=== PATIENT | female | born 1930 | race Caucasian/White ===

== ENCOUNTER 2018-01-04 21:45 | Inpatient (IN) | payer OTHER ==
[~2018-01-04] VITALS: Ht 157.5 cm; Wt 55.8 kg
[~2018-01-04 21:45] MED LIST: CLORAZEPATE DIP PO; CYCLOBENZAPRINE10 M1 PO; ZOFRAN ODT4 M1 SL
--- NOTE | 2018-01-04 21:50 | ED GENERAL ADULT ---
History of Present Illness General Chief Complaint: General Adult Stated Complaint: BIBA GENERALIZED WEAKNESS Source: patient Exam Limitations: no limitations Vital Signs & Intake/Output Vital Signs & Intake/Output Vital Signs Date Time Temp Pulse Resp B/P B/P Pulse O2 O2 Flow FiO2 Mean Ox Delivery Rate 01/05 0559 98.7 68 18 124/60 99 01/05 0428 97 Room Air 01/05 0401 97.5 72 18 128/84 99 Room Air 01/05 0247 97.6 74 18 133/83 98 Room Air 01/05 0113 97.5 79 18 154/81 97 Room Air 01/05 0000 97.5 79 18 183/79 96 Room Air 01/04 2258 Room Air 01/04 2154 97.8 71 18 181/78 97 Room Air ED Intake and Output 01/05 0000 01/04 1200 Intake Total Output Total 400 Balance -400 Output, Urine 400 Patient 115 lb Weight Weight Reported by Patient Measurement Method Reconcile Medications Clorazepate Dipotassium 15 MG TABLET 15 MG PO DAILY SLEEP (Reported) Cyclobenzaprine HCl 10 MG TABLET 10 MG PO DAILY MUSCLE STRAIN (Reported) Ondansetron (Zofran Odt) 4 MG TAB.RAPDIS 1 TAB SL TID PRN NAUSEA Triage Nurses Notes Reviewed? yes HPI: 87 y/o F brought in by ambulance c/o generalized weakness of various days duration. Pt is a poor narrator and offers different timelines with regards to her complains. Pt is independent in her ADLs, lives with her , does not need assistance in ambulation. As per pt, she describes the weakness as "no energy to do anything"; she does state she has not had adequate fluid intake. She does ambulate, but states that since yesterday she has had to grab onto things to ambulate. She denies lightheadedness, palpations, fall, head trauma, fever, recent upper respiratory tract infection, chest pain, SOB, cough, dysuria , constipation/diarrhea, headache. On examination, patient was noted to have unsteady gate though ambulating without assistance. Left sided upper extremity weakness was noted intermittingly throughout serial neuro checks. No other focal neurological abnormality was noted. No dysarthria, sensation is preserved. CT head does show the appearance of a chronic infarct in the occipital area that was not present on her latest CT (done in 2014). Passed bedside swallow test. EKG showed NSR. (Harish Najera MD,[facility]) Allergies Coded Allergies: Penicillins (Mild, HIVES, RASH 01/04/18) Sulfa (Sulfonamide Antibiotics) (Mild, HIVES, RASH 01/04/18) aspirin (Mild, VOMIT 01/05/18) (Kiran Francisco DO) Past History Medical History Any Pertinent Medical History? none Neurological: NONE EENT: NONE Cardiovascular: NONE Respiratory: NONE Gastrointestinal: NONE Hepatic: NONE Renal: NONE Musculoskeletal: NONE Psychiatric: NONE Endocrine: NONE Blood Disorders: NONE Cancer(s): NONE History of MRSA: No History of VRE: No History of CDIFF: No Surgical History Surgical History: none Psychosocial History Who do you live with Spouse Services at Home None What is your primary language Malagasy Family History Family History, If Any: MOTHER Relation not specified for: FH: diabetes mellitus FH: heart disease Hx Contributory? No (Harish Najera MD,[facility]) Review of Systems Review of Systems Constitutional: Reports: see HPI. EENTM: Reports: no symptoms. Respiratory: Reports: no symptoms. Cardiovascular: Reports: no symptoms. GI: Reports: no symptoms. Genitourinary: Reports: no symptoms. Musculoskeletal: Reports: no symptoms. Skin: Reports: no symptoms. Neurological/Psychological: Reports: no symptoms. Hematologic/Endocrine: Reports: no symptoms. Immunologic/Allergic: Reports: no symptoms. All Other Systems: Reviewed and Negative (Harish Najera MD,[facility]) Physical Exam Physical Exam General Appearance: well developed/nourished, no apparent distress, alert, awake , comfortable Head: atraumatic, normal appearance Eyes: Bilateral: normal appearance. Neck: normal inspection, supple, full range of motion Respiratory: normal breath sounds, chest non-tender, no respiratory distress, lungs clear Cardiovascular: regular rate/rhythm Gastrointestinal: normal bowel sounds, soft, non-tender, no organomegaly Extremities: normal inspection, normal capillary refill, normal range of motion Neurologic/Psych: no motor/sensory deficits, awake, alert, oriented x 3, normal gait Skin: intact Core Measures ACS in differential dx? No CVA/TIA Diagnosis: Yes Swallow Evaluation Pass Swallow eval date 01/05/18 Swallow eval time 0136 Sepsis Present: No Sepsis Focused Exam Completed? No (Harish Najera MD,[facility]) Core Measures Reason tPA not given Medical Contraindication (Herb OGLESBY,Kiran Cooper) Progress Differential Diagnoses I considered the following diagnoses in my evaluation of the patient: [TIA, CVA] Plan of Care: Orders Procedure Date/time Status CBC WITHOUT DIFFERENTIAL 01/06 06 Active BASIC ELECTROLYTES PLUS BUN&CR 01/06 0600 Active Heart Healthy Diet 01/05 B Active TROPONIN LEVEL 01/05 0600 Active EKG 01/05 0600 Active Pathway - chart 01/05 0239 Active [id number] DOPPLER 01/05 022 Active MRI-HEAD W/O ERICA 01/05 0226 Active Code Status 01/05 0226 Active ECHOCARDIOGRAM 01/05 022 Active Persaud, Insertion/Removal/Asses 01/05 0150 Active CULTURE,URINE 01/05 0150 Active Patient Data 01/05 0138 Active NIH Stroke Scale 01/[address] in observation 01/05 0128 Active ED Holding Orders 01/05 0128 Active Vital Signs 01/05 0128 Active Code Status 01/05 0128 Complete VTE Mechanical Prophylaxis 01/05 UNK Active Nursing Misc 01/05 UNK Active Intake & Output 01/04 2321 Active URINALYSIS 01/04 2202 Complete TROPONIN LEVEL 01/04 2158 Complete LACTIC ACID 01/04 215 Complete COMPREHENSIVE METABOLIC PANEL 01/04 215 Complete CBC WITHOUT DIFFERENTIAL 01/04 2157 Complete EKG 01/04 215 Active Current Medications Sig/Julissa Start time Last Medication Dose Stop Time Status Admin Enoxaparin Sodium 40 MG DAILY 01/05 0900 AC (Lovenox) Acetaminophen 650 MG Q8P PRN 01/05 0245 AC (Tylenol) Atorvastatin Calcium 80 MG 1700 01/05 0230 AC 01/05 (Lipitor) 0255 Ondansetron HCl 4 MG Q8P PRN 01/05 0230 AC 01/05 (Zofran) 0250 Sodium Chloride 1,000 ML Q13H 01/05 0230 AC 01/05 (Normal Saline 0.9%) 01/05 1529 0250 Dexamethasone 8 MG ONCE ONE 01/04 2215 CAN (Decadron) 01/04 221 Ketorolac 50 MG ONCE ONE 01/04 2215 CAN Tromethamine 01/04 221 (Toradol) Laboratory Tests 01/05/18 0600: Troponin I Pending 01/04/18 2305: Urine Color YEL, Urine Clarity CLEAR, Urine pH 8.5 H, Ur Specific [place] 1.010 , Urine Protein NEG, Urine Ketones NEG, Urine Nitrite NEG, Urine Bilirubin NEG, Urine Urobilinogen 0.2, Ur Leukocyte Esterase NEG, Ur Microscopic EXAM NOT REQUIRED, Urine Hemoglobin NEG, Urine Glucose NEG 01/04/18 220: Troponin I < 0.01 01/04/182208: Anion Gap 8, Estimated GFR 59 L, BUN/Creatinine Ratio 21.1, Glucose 94, Lactic Acid 1.0, Calcium 9.0, Total Bilirubin 0.4, AST 19, ALT 23, Alkaline Phosphatase 55, Total Protein 6.3, Albumin 3.7, Globulin 2.6, Albumin/Globulin Ratio 1.4, CBC w Diff NO MAN DIFF REQ, RBC 4.91, MCV 83.6, MCH 27.8, MCHC 33.2, RDW 14.6 H , MPV 10.8 H, Gran % 59.7, Lymphocytes % 30.9, Monocytes % 7.4, Eosinophils % 1.6, Basophils % 0.4, Absolute Granulocytes 3.4, Absolute Lymphocytes 1.8, Absolute Monocytes 0.4, Absolute Eosinophils 0.1, Absolute Basophils 0 Microbiology 01/05 0208 URINE ROUT: Urine Culture - RECD Diagnostic Imaging: Viewed by Me: CT Scan. Initial ED EKG: NSR ([facility] Ghosh MD) Differential Diagnoses I (Kiran Francisco DO) Departure Departure Disposition: STILL A PATIENT Condition: Stable Referrals: Edgar Garcia MD (PCP/Family) Departure Forms: Customer Survey General Discharge Information Observation Note Spoke With: Edgar Garcia MD Physician Advisor Notified: KIRAN FRANCISCO DO Place Patient In: Non-ED OBS Care Area Rationale for Observation: My rational for observation is as follows [87 y/o F coming in c/o generalized weakness was found to have intermittent L UE weakness on serial neuro checks. CT scan shows chronic occipital lobe infarct compared to prior CT done in 2014. She needs serial neuro checks, cardiac monitoring, possible neurology consultation]. ([facility] Ghosh MD) Departure Clinical Impression Primary Impression: TIA (transient ischemic attack) Admission Note Spoke With: Edgar Garcia MD Observation Note Rationale for Observation: My rational for observation is as follows . Resident Co-Sign Statement Statement: ED Attending supervision documentation- [x] I saw and evaluated the patient. I have also reviewed all the pertinent lab results and diagnostic results. I agree with the findings and the plan of care as documented in the Resident's documentation. [] I have reviewed the ED Record and agree with the Resident's documentation. [] Additions or exceptions (if any) to the Resident's note and plan are summarized below: [] The patient is an 87-year-old female who has had intermittent confusion and now has intermittent left upper extremity weakness. Concern for TIA has been raised. The patient is being placed in observation for telemetry monitoring, neurology consultation, neurologic evaluations every 6 hours. On my exam she was awake alert oriented 3, somewhat slow to respond, cranial nerves II through XII are grossly intact, she had left upper extremity weakness that was significant, no lower extremity weakness but gait was unsteady. Consider MRI. (Herb OGLESBY,Kiran Cooper) Critical Care Note Critical Care Note Critical Care Time: 30-74 min (Harish Najera MD,[facility])
[2018-01-04 22:30] LABS: ABSOLUTE BASOPHIL COUNT 0 /CUMM (0.0-0.2); ABSOLUTE EOSINOPHIL COUNT 0.1 /CUMM (0.0-0.7); ABSOLUTE GRANULOCYTE CT 3.4 /CUMM (1.4-6.5); ABSOLUTE LYMPH COUNT 1.8 /CUMM (1.2-3.4); ABSOLUTE MONOCYTE COUNT 0.4 /CUMM (0.10-0.60); BASOPHIL % 0.4 % (0.0-2.0); EOSINOPHIL % 1.6 % (0-5); GRANULOCYTE % 59.7 % (42.2-75.2); HEMATOCRIT 41.1 % (37-47); MEAN CORPUSCULAR HGB 27.8 PG (27.0-31.0); MEAN CORPUSCULAR HGB CONC 33.2 G/DL (33.0-37.0); MEAN CORPUSCULAR VOLUME 83.6 FL (81.0-99.0); MEAN PLATELET VOLUME 10.8 FL (7.4-10.4); PLATELET COUNT 158 /CUMM (130-400); RBC DISTRIBUTION WIDTH 14.6 % (11.5-14.5); RED BLOOD CELL CT 4.91 /CUMM (4.20-5.40); WHITE BLOOD CELL COUNT 5.7 /CUMM (4.8-10.8)
--- NOTE | 2018-01-05 00:31 | CT SCAN REPORT ---
EXAMINATION: CT HEAD WITHOUT CONTRAST CLINICAL INFORMATION: Unsteady gait for one day. Evaluate for cerebellar infarct. COMPARISON: 12/24/2014 TECHNIQUE: Contiguous axial imaging was performed from the skull base to vertex without intravenous contrast. DLP: 614 mGy-cm. FINDINGS: There is hypoattenuation seen in the left occipital lobe with the appearance of a chronic infarct. This is a new finding since 12/24/2014. There is no evidence of acute intracranial hemorrhage or territorial infarction. No abnormal mass effect or midline shift is seen. [place] to white matter differentiation is otherwise well preserved. No extra-axial fluid collections are identified. No hydrocephalus. Proportional prominence of the ventricles and sulcal spaces is consistent with moderate volume loss. Confluent periventricular and deep white matter hypoattenuation is consistent with severe small vessel ischemic changes. Chronic lacunar infarct in the left thalamus. The osseous structures and soft tissues are normal. Mild opacification of the left ethmoid air cells. The mastoid air cells and visualized portions of the paranasal sinuses are otherwise well aerated. IMPRESSION: No acute intracranial pathology. Chronic appearing left occipital lobe infarct, although this is new from 12/24/2014. No cerebellar infarct seen. Moderate volume loss with severe small vessel ischemic changes.
--- NOTE | 2018-01-05 02:47 | History & Physical ---
Obey Escobar 01/05/18 0228: General Information and HPI MD Statement: I have seen and personally examined LOBO RODRIGUEZ and documented this H&P. The patient is a 87 year old F who presented with a patient stated chief complaint of weakness. History of Present Illness: Patient is a 87 year old female with no significant PMH and last admission 2013 where she was ruled out ACS for small elvevation of troponins. Patient is a poor historian with hearing loss. Presented today after a cheif complaint of "weakness." Patient claims she is overall not feeling well and noticed she has had changes in her speech this morning from baseline. In addition she has noticed that within the past 12 hours she has had significant changes in strength in her left upper extremity for which she claims feels "."She has not been eating or drinking well in the past week. She lives with her whom she cares for and is independent at baseline. She does not require a walker or cane at home. No history of strokes or myocardial infarctions in the past. Patient quit smoking 25 years ago and denies any alcohol use. Brought to the ED by her grandson. She denied any fevers, chills, chest pain, palpitations, headaches, nausea, vomiting, visual changes or bowel/bladder incontinence. PCP: Dr. Garcia Allergies/Medications Allergies: Coded Allergies: Penicillins (Mild, HIVES, RASH 01/04/18) Sulfa (Sulfonamide Antibiotics) (Mild, HIVES, RASH 01/04/18) aspirin (Mild, VOMIT 01/05/18) Home Med list Clorazepate Dipotassium 15 MG TABLET 15 MG PO DAILY SLEEP (Reported) Cyclobenzaprine HCl 10 MG TABLET 10 MG PO DAILY MUSCLE STRAIN (Reported) Ondansetron (Zofran Odt) 4 MG TAB.RAPDIS 1 TAB SL TID PRN NAUSEA Past History Travel History Traveled to [place] past 21 day No Medical History Neurological: NONE EENT: hearing loss Cardiovascular: NONE Respiratory: NONE Gastrointestinal: NONE Hepatic: NONE Renal: NONE Musculoskeletal: NONE Psychiatric: NONE Endocrine: NONE Blood Disorders: NONE Cancer(s): NONE History of MRSA: No History of VRE: No History of CDIFF: No Surgical History Surgical History: none Past Family/Social History Family History Relations & Conditions if any MOTHER Relation not specified for: FH: diabetes mellitus FH: heart disease Psychosocial History Services at Home: None Smoking Status: Former Smoker ETOH Use: denies use Illicit Drug Use: denies illicit drug use Review of Systems Review of Systems Constitutional: Denies: see HPI. Exam & Diagnostic Data Last 24 Hrs of Vital Signs/I&O Vital Signs Date Time Temp Pulse Resp B/P B/P Pulse O2 O2 Flow FiO2 Mean Ox Delivery Rate 01/05 0000 97.5 79 18 183/79 96 Room Air 01/04 2258 Room Air 01/04 2154 97.8 71 18 181/78 97 Room Air Intake & Output 01/05 0800 01/05 0000 01/04 1600 Intake Total Output Total 400 Balance -400 Output, Urine 400 Patient 115 lb Weight Weight Reported by Patient Measurement Method Physical Exam General Appearance Alert, Oriented X3, Cooperative, No Acute Distress Skin No Rashes, No Breakdown HEENT PERRLA, EOMI, dry mucous membranes Neck Supple, No JVD, No thryomegaly Cardiovascular Regular Rate, Normal S1, Normal S2 Lungs Clear to Auscultation, Normal Air Movement Abdomen Normal Bowel Sounds, Soft, No Tenderness Neurological Sensation Intact, Gait unasessed Normal speech strength decreased in left upper extremity 3/5 Pronator drift left arm CN intact Normal Tone Extremities No Clubbing, No Cyanosis, No Edema Vascular Normal Pulses, Pulses Symmetrical Last 24 Hrs of Labs/Doug: Laboratory Tests 01/04/182304: Urine Color YEL, Urine Clarity CLEAR, Urine pH 8.5 H, Ur Specific [place] 1.010 , Urine Protein NEG, Urine Ketones NEG, Urine Nitrite NEG, Urine Bilirubin NEG, Urine Urobilinogen 0.2, Ur Leukocyte Esterase NEG, Ur Microscopic EXAM NOT REQUIRED, Urine Hemoglobin NEG, Urine Glucose NEG 01/04/182208: Troponin I < 0.01 01/04/182208: Anion Gap 8, Estimated GFR 59 L, BUN/Creatinine Ratio 21.1, Glucose 94, Lactic Acid 1.0, Calcium 9.0, Total Bilirubin 0.4, AST 19, ALT 23, Alkaline Phosphatase 55, Total Protein 6.3, Albumin 3.7, Globulin 2.6, Albumin/Globulin Ratio 1.4, CBC w Diff NO MAN DIFF REQ, RBC 4.91, MCV 83.6, MCH 27.8, MCHC 33.2, RDW 14.6 H , MPV 10.8 H, Gran % 59.7, Lymphocytes % 30.9, Monocytes % 7.4, Eosinophils % 1.6, Basophils % 0.4, Absolute Granulocytes 3.4, Absolute Lymphocytes 1.8, Absolute Monocytes 0.4, Absolute Eosinophils 0.1, Absolute Basophils 0 Microbiology 01/05 0208 URINE ROUT: Urine Culture - RECD Diagnostic Data EKG Results NSR 69, QTC 437 Assessment/Plan Assessment: Patient is a 87 year old female with no significant PMH who presented with increasing weakness, subjective changes in speech and increasingly left upper extremity weakness. New CT changes of chronic appearing left occipital lobe infarct new from previous admission 12/24/2014. Severe small vessel ischemic changes, no volume loss. Patients vital signs stable with negative troponin and NSR on EKG. Patient alert and oriented X3. Claims to be allergic to aspirin ( noticed vomiting a long time ago). NIH score 2 on admission. EMERGENCY DEPARTMENT Vitals: 97.8, 71, 18, 181/78 EKG: NSR 69, QTC 437 CBC: WBC 5.7, Hgb 13.6, Hct: 41.1, Plt 158 Chemistry: Na: 136, K+ 4.2, Cl 100, CO2 28, BUN 19, Cr 0.9 UA: Negative CT HEAD: No acute intracranial pathology. Chronic appearing left occipital lobe infarct, although this is new from 12/24/2014. No cerebellar infarct seen. Moderate volume loss with severe small vessel ischemic changes. PROBLEM LIST: 1. Rule out TIA/CVA RULE OUT TIA/CVA Patient a poor historian and originally told she has signs of fatigue and weakness with poor oral intake. Further history discovered she may have noticed changes in her speech earlier today. Increasing left upper extremity weakness noticed on examination. CT imaging shows a new chronic left occipital lobe infarct changed from previous in 12/2014. NIH score 2 on admission. * OBSERVE on telemetry for arrythmias * Q2 neurological checks * Neurology consultation in AM * MRI Brain/Carotid Dopplers * ECHO * Aspirin + Statin (patient states she is allergic to statins and she has vomited in past); will give prn Zofran for nausea * Repeat troponin/EKG * PT/OT/Speech * Fall Precaution Code Status: Full Code DVT PPx: Heparin SC Diet: Regular Diet As Ranked By This Provider Problem List: 1. TIA (transient ischemic attack) Core Measures/Misc (02/09) Acute Coronary Syndrome ACS Diagnosis: No Congestive Heart Failure Congestive Heart Failure Diagnosis No Cerebrovascular Accident CVA/TIA Diagnosis: Yes NIH Stroke Scale: Total 2 Date Last Known Well: 01/03/18 Time Last Known Well: 0000 Symptom Start Date: 01/05/18 Symptom Start Time: 0900 tPA Risk/Benefit discussion I have discussed the risks, benefits, and alternatives of Alteplase treatment including: - If given promptly, can resolve or have major improvement in stroke symptoms. - Bleeding (hemorrhage) is the most common risk that can occur. - Bleeding may occur into the brain and cause~shelter serious disability~ including - this is rare, affecting about 1% of patients. - Alternative treatments with proven benefit for patients with stroke include aspirin and care in a specialized unit where staff members pay careful attention to a variety of basic aspects of care. tPA given? No Reason tPA not ordered Medical Contraindication Swallow Evaluation Pass Current/Past Hx AFib/AFlutter Yes VTE (View Protocol) VTE Risk Factors Age>40 No Mechanical VTE Prophylaxis d/t N/A MechProphylax Ordered No VTE Pharm Prophylaxis d/t NA PharmProphylax ordered Sepsis (View protocol) Sepsis Present: No If YES complete Sepsis Event Note If YES complete Sepsis Event Note Marielos Restrepo 01/05/18 0249: Core Measures/Misc (02/09) Sepsis (View protocol) If YES complete Sepsis Event Note If YES complete Sepsis Event Note Resident Review Statement Resident Statement: examined this patient, discussed with business analyst intern, agreed with business analyst intern Other Findings: Patient is 87-year-old female with past medical history of undiagnosed occipital stroke, demand ischemia, was brought in by family with a chief complaint of generalized weakness since past 2 days. Patient states that she has not been feeling well lately, and has been having little low oral intake since past 1 week. This morning when she woke up, she also noticed some slurring in her speech, and later as the day progressed, she noticed that her left upper extremity is becoming weak. Patient describes it as the left hand is 'becoming '. Patient had a NIH stroke scale of 2 on admission scoring on left arm pronator drift and slurring of speech. Patient believes that she continues to have slurred speech and her left upper extremity was weak on examination. Patient reports that she came in today because she was not feeling well and was increasingly dizzy. Of note, CT head done in ER was significant for Chronic appearing left occipital lobe infarct, although this is new from 12/24/2014. Patient was not aware of this finding. Her right upper and lower extremity show no remnant loss of strength or sensation on examination. On review of system, patient denies any headache/dizziness/chest pain/dyspnea/ abdominal discomfort/diarrhea/fever/chills/constipation/burning micturition/pain , swelling, weakness in lower extremities. Labs and vitals as above CTA findings as above. No acute intracranial pathology Assessment and plan We will admit the patient on telemetry floor as observation, NIH stroke scale upon admission is 2, every 2 hr neuro checks, neurology consult in a.m. we will obtain MRI brain, bilateral carotid Doppler ultrasound, echocardiogram. Will start her on aspirin and high-dose statin. Since the symptoms have been going on since morning, she is not a candidate for TPA. We will give her another bag of IV fluids given that she has low p.o. intake and looks dry on physical exam. Will get another set of EKG and troponins to rule out ACS. Patient does not take any medication at home. DVT prophylaxis subcutaneous Lovenox. Patient is DNR/DNI.
--- NOTE | 2018-01-05 07:13 | PN-Observation ---
Observation Note Observation Note _ I have personally examined LOBO RODRIGUEZ. her disposition is uncertain at this time. Before a determination can be made, she requires continued observation for the following reasons [Left-sided weakness, possible TIA/CVA]. Assessment/Plan Medical Assessment: 87 year old female presenting with increasing LUE weakness and self-reported aphasia. -MRI brain showed: acute infarct in the right parietal lobe with minimal gyral petechial hemorrhage. Additional punctate foci of acute ischemia in the right middle frontal gyrus near the vertex and in the posterior left parietal lobe. -Bedside swallow evaluation was performed, which the patient passed. Problems: 1. 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 LUE weakness Problem List: 1. Hypertension 2. CVA (cerebral vascular accident) Plan: * Continue regular diet as patient passed bedside swallow exam * Further evaluation tomorrow with speech therapy * Aspirin & Statin * Continue Lisinopril * PT, OT consultation Subjective Follow-up For: TIA vs. CVA Subjective: Patient seen resting in the ED bed, grasping the phone off the hook with her R hand as her L hand is kept close to her chest. She reports feeling improved from yesterday, has minimal memory of the events surrounding her arrival in the ED, but does report ongoing left upper extremity weakness. Denies headache, tingling /numbness, dizziness, ongoing aphasia. Review of Systems Constitutional: Reports: weakness. Denies: chills, diaphoresis, fever, malaise. Objective Last 24 Hrs of Vital Signs/I&O Vital Signs Date Time Temp Pulse Resp B/P B/P Pulse O2 O2 Flow FiO2 Mean Ox Delivery Rate 01/05 0559 98.7 68 18 124/60 99 01/05 0428 97 Room Air 01/05 0401 97.5 72 18 128/84 99 Room Air 01/05 0247 97.6 74 18 133/83 98 Room Air 01/05 0113 97.5 79 18 154/81 97 Room Air 01/05 0000 97.5 79 18 183/79 96 Room Air 01/04 2258 Room Air 01/04 2154 97.8 71 18 181/78 97 Room Air Intake & Output 01/05 0800 01/05 0000 01/04 1600 Intake Total Output Total 400 Balance -400 Output, Urine 400 Patient 52.163 kg Weight Weight Reported by Patient Measurement Method Physical Exam General Appearance: Alert, Oriented X3, Cooperative, No Acute Distress Neurological: LUE weak, 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, while most fingers unable to grasp Current Medications: Current Medications Sig/Julissa Start time Last Medication Dose Route Stop Time Status Admin Acetaminophen 650 MG Q8P PRN 01/05 245 AC PO Aspirin 0 .STK-MED ONE 01/05 024 DC PO Aspirin 325 MG ONCE ONE 01/05 0230 DC 01/05 PO 01/05 0231 0247 Atorvastatin Calcium 80 MG 1700 01/05 023 AC 01/05 PO 0255 Dexamethasone 8 MG ONCE ONE 01/04 2215 CAN PO 01/05 2216 Enoxaparin Sodium 40 MG DAILY 01/05 0900 AC SC Ketorolac 50 MG ONCE ONE 01/04 2215 CAN Tromethamine IM 01/05 2216 Ondansetron HCl 0 .STK-MED ONE 01/05 250 DC .ROUTE Ondansetron HCl 4 MG Q8P PRN 01/05 0230 AC 01/05 IV 0250 Sodium Chloride 1,000 ML Q13H 01/05 023 AC 01/05 IV 01/05 1529 0250 Sodium Chloride 1,000 ML BOLUS ONE 01/04 2230 DC 01/04 IV 01/04 2329 2238 Last 24 Hrs of Labs/Mics: Laboratory Tests 01/05/18 0600: Troponin I < 0.01 01/04/18 2305: Urine Color YEL, Urine Clarity CLEAR, Urine pH 8.5 H, Ur Specific [place] 1.010 , Urine Protein NEG, Urine Ketones NEG, Urine Nitrite NEG, Urine Bilirubin NEG, Urine Urobilinogen 0.2, Ur Leukocyte Esterase NEG, Ur Microscopic EXAM NOT REQUIRED, Urine Hemoglobin NEG, Urine Glucose NEG 01/04/18 2209: Troponin I < 0.01 01/04/18 220: Anion Gap 8, Estimated GFR 59 L, BUN/Creatinine Ratio 21.1, Glucose 94, Lactic Acid 1.0, Calcium 9.0, Total Bilirubin 0.4, AST 19, ALT 23, Alkaline Phosphatase 55, Total Protein 6.3, Albumin 3.7, Globulin 2.6, Albumin/Globulin Ratio 1.4, CBC w Diff NO MAN DIFF REQ, RBC 4.91, MCV 83.6, MCH 27.8, MCHC 33.2, RDW 14.6 H , MPV 10.8 H, Gran % 59.7, Lymphocytes % 30.9, Monocytes % 7.4, Eosinophils % 1.6, Basophils % 0.4, Absolute Granulocytes 3.4, Absolute Lymphocytes 1.8, Absolute Monocytes 0.4, Absolute Eosinophils 0.1, Absolute Basophils 0 Microbiology 01/058 URINE ROUT: Urine Culture - RECD
--- NOTE | 2018-01-05 09:28 | MRI REPORT ---
EXAMINATION: MR BRAIN WITHOUT CONTRAST CLINICAL INFORMATION: New left-sided weakness. Rule out acute stroke. COMPARISON: Head CT from 01/05/2018. TECHNIQUE: Multiplanar, multisequence imaging of the brain was performed without contrast. FINDINGS: There are acute infarcts in the right parietal lobe. A small area of diffusion signal abnormality is also visible in the right frontal lobe at the high convexity. There is a punctate acute infarct is well in the left parietal lobe posteriorly. 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 There is a chronic infarct with laminar necrosis in the left [place] vascular territory involving the occipital lobe as well. There is no evidence of hydrocephalus. No mass effect or midline shift is seen. No extra-axial fluid collections are seen. The cerebellum is normal. Generalized parenchymal volume loss evident. There is a mild amount of gyral petechial hemorrhage at the site of the acute infarct in the right parietal lobe. The craniovertebral junction, marrow signal, and midline structures are normal. The major intracranial flow voids at the level of the [place] of Rodríguez are preserved. The dural venous sinus flow voids are maintained. The mastoid air cells and paranasal sinuses are well aerated. IMPRESSION: Acute infarct in the right parietal lobe with minimal gyral petechial hemorrhage. Additional punctate foci of acute ischemia in the right middle frontal gyrus near the vertex and in the posterior left parietal lobe.
--- NOTE | 2018-01-05 10:14 | ULTRASOUND REPORT ---
EXAMINATION: DUPLEX BILATERAL CAROTID ULTRASOUND CLINICAL INFORMATION: Slurring of speech with left-sided weakness COMPARISON: None. TECHNIQUE: Duplex bilateral carotid US was performed using real-time ultrasound and Doppler techniques (integrating B-mode 2D vascular images, Doppler spectral analysis and color flow Doppler imaging). These techniques were utilized to interrogate the extracranial carotid and vertebral arteries bilaterally. The degree of stenosis is based off criteria similar to NASCET. FINDINGS: 1. On the right: There is a hemodynamically significant stenosis correlating to 50-79% diameter reduction of the proximal internal carotid artery. A large amount of hyperechoic plaque is noted within the proximal internal and external carotid arteries. The peak systolic and diastolic velocities as measured within the proximal internal carotid artery equals 189 and 3 cm/s respectively. The vertebral artery is patent demonstrating antegrade flow. The right external carotid artery shows no significant stenosis. 2. On the left: Plaque is noted within the internal and carotid artery, but velocity measurements are all normal, not suggesting a stenosis of greater than 50% diameter reduction in the left ICA. The vertebral artery is patent demonstrating antegrade flow. The left external carotid artery shows no significant stenosis. IMPRESSION: Hemodynamically significant stenosis in the right internal carotid artery consistent with a 50-79% diameter reduction. On the left, a stenosis of greater than 50% is not present.
--- NOTE | 2018-01-05 10:24 | Admission Certification ---
Admission Certification Certification Statement - As attending physician, I certify that at the time of - admission, based on clinical presentation, severity of - symptoms, need for further diagnostic testing and - therapeutic interventions, and risk of adverse outcomes - without in-hospital treatment, in my clinical assessment, - this patient requires an acute hospital stay for a minimum - of two nights or longer. I have also considered psychsocial - factors such as support system, advanced age, financial - issues, cognitive issues, and failed out-patient treatments, - past re-admission history, safety of patient, and lack of - compliance as applicable. Specific rationale supporting this admission is: Generalized weakness, TIA, possible CVA
--- NOTE | 2018-01-05 10:28 | PN- Att Addend ---
Attending Addendum Attending Brief Note 87-year-old white female who is a poor historian induction followed regularly with myself, also taking care of a sick . Has been complaining of weakness for several days is not too specific if it is localized to generalized. Maybe not hydrating as good as she should. Was brought in by ambulance to the emergency room. Her monitor shows sinus rhythm. She denies any incontinence. Or any speech problems. She had a CAT scan of the head which showed some old changes in the occipital area. Patient is admitted for observation she will have a neurology consultation will be going for an MRI of the head and carotid Doppler.. Current Medications Sig/Julissa Start time Last Medication Dose Route Stop Time Status Admin Acetaminophen 650 MG Q8P PRN 01/05 0245 AC PO Aspirin 0 .STK-MED ONE 01/05 0242 DC PO Aspirin 325 MG ONCE ONE 01/05 0230 DC 01/05 PO 01/05 0231 0247 Atorvastatin Calcium 80 MG 1700 01/05 0230 AC 01/05 PO 0255 Dexamethasone 8 MG ONCE ONE 01/04 2215 CAN PO 01/04 2216 Enoxaparin Sodium 0 .STK-MED ONE 01/05 0933 DC SC Enoxaparin Sodium 40 MG DAILY 01/05 0900 AC 01/05 SC 0932 Ketorolac 50 MG ONCE ONE 01/04 2215 CAN Tromethamine IM 01/04 2216 Ondansetron HCl 0 .STK-MED ONE 01/05 0250 DC .ROUTE Ondansetron HCl 4 MG Q8P PRN 01/05 0230 AC 01/05 IV 0250 Sodium Chloride 1,000 ML Q13H 01/05 0230 AC 01/05 IV 01/05 1529 0250 Sodium Chloride 1,000 ML BOLUS ONE 01/04 2230 DC 01/04 IV 01/04 2329 2238 Patient probably would be started on a statin after neurology evaluation..
--- NOTE | 2018-01-05 15:54 | Cons- Neurology ---
General Information and HPI Consulting Request Date of Consult: 01/05/18 Requested By: Edgar Garcia MD Reason for Consult: Trouble speaking and left sided weakness Source of Information: patient Exam Limitations: no limitations History of Present Illness: This is a very pleasant 87 year old right handed woman who presents from home after developing a new sudden trouble with expressive speech and left sided weakness last night. She was now found to have a new infarction on MRI. She notes that the left side weakness is somewhat improved and so is her speech. She managed to down a meal in the ER. No other known cardiovascular risk factors. Allergies/Medications Allergies: Coded Allergies: Penicillins (Mild, HIVES, RASH 01/04/18) Sulfa (Sulfonamide Antibiotics) (Mild, HIVES, RASH 01/04/18) aspirin (Mild, VOMIT 01/05/18) Home Med List: No Known Home Medications Current Medications: Current Medications Sig/Julissa Start time Last Medication Dose Route Stop Time Status Admin Acetaminophen 650 MG Q8P PRN 01/05 0245 AC PO Aspirin 0 .STK-MED ONE 01/05 0242 DC PO Aspirin 325 MG ONCE ONE 01/05 023 DC 01/05 PO 01/05 0231 0247 Atorvastatin Calcium 80 MG 1700 01/05 0230 AC 01/05 PO 0255 Dexamethasone 8 MG ONCE ONE 01/04 2215 CAN PO 01/04 221 Enoxaparin Sodium 0 .STK-MED ONE 01/05 0933 DC SC Enoxaparin Sodium 40 MG DAILY 01/05 0900 AC 01/05 SC 0932 Ketorolac 50 MG ONCE ONE 01/04 221 CAN Tromethamine IM 01/04 2216 Ondansetron HCl 0 .STK-MED ONE 01/05 0250 DC .ROUTE Ondansetron HCl 4 MG Q8P PRN 01/05 0230 AC 01/05 IV 0250 Sodium Chloride 1,000 ML Q13H 01/05 0230 DC 01/05 IV 01/05 1529 0250 Sodium Chloride 1,000 ML BOLUS ONE 01/04 2230 DC 01/04 IV 01/04 2329 2238 Review of Systems Review of Systems: Otherwise negative to the 10 point complete review of system. Past History Travel History Traveled to [place] past 21 day No Medical History Blood Transfusion Hx: No Neurological: NONE EENT: hearing loss Cardiovascular: NONE Respiratory: NONE Gastrointestinal: NONE Hepatic: NONE Renal: NONE Musculoskeletal: NONE Psychiatric: NONE Endocrine: NONE Blood Disorders: NONE Cancer(s): NONE Surgical History Surgical History: 1 Family History Relations & Conditions If Any: MOTHER Relation not specified for: FH: diabetes mellitus FH: heart disease Psychosocial History Services at Home: None Smoking Status: Former Smoker ETOH Use: denies use Illicit Drug Use: denies illicit drug use Exam & Diagnostic Data Vital Signs and I&O Vital Signs Date Time Temp Pulse Resp B/P B/P Pulse O2 O2 Flow FiO2 Mean Ox Delivery Rate 01/05 1338 98.8 62 16 154/71 97 Room Air 01/05 0940 95 Room Air Room Air 01/05 0937 96.5 71 18 170/71 95 Room Air Room Air 01/05 0559 98.7 68 18 124/60 99 01/05 0428 97 Room Air 01/05 0401 97.5 72 18 128/84 99 Room Air 01/05 0247 97.6 74 18 133/83 98 Room Air 01/05 0113 97.5 79 18 154/81 97 Room Air 01/05 0000 97.5 79 18 183/79 96 Room Air 01/04 2258 Room Air 01/04 2154 97.8 71 18 181/78 97 Room Air Intake & Output 01/05 1600 01/05 0800 01/05 0000 Intake Total Output Total 400 Balance -400 Output, Urine 400 Patient 115 lb 115 lb Weight Weight Reported by Patient Measurement Method Physical Exam: Alert and orientedx3. Fluent though somewhat dysarthric. Comprehends. RRR, S1 and S2 normal. EOMI, JHOAN no nystagmus, no clear facial droop, face symmetric, tongue midline, VF - not following hard to say if there is a deficit (will repeat tomorrow), V1- V3 sensation normal, TPZ strong. Left hemiparesis with pronator drift 3/5 arm and +4/5 proximal leg. Right side strong. Sensation intact b/l. FNF normal on right. Trouble with it on left. Upgoing toe on left side. Gait deferred. Last 48 Hours of Lab Results: Laboratory Tests 01/05 01/04 01/04 0600 2305 2209 Chemistry Troponin I (< 0.11 ng/ml) < 0.01 < 0.01 Urines Urine Color (YEL,AMB,STR) YEL Urine Clarity (CLEAR) CLEAR Urine pH (5.0 - 8.0) 8.5 H Ur Specific [place] (1.001 - 1.035) 1.010 Urine Protein (NEG,<30 MG/DL) NEG Urine Ketones (NEG) NEG Urine Nitrite (NEG) NEG Urine Bilirubin (NEG) NEG Urine Urobilinogen (0.1 - 1.0 EU/dl) 0.2 Ur Leukocyte Esterase (NEG) NEG Ur Microscopic EXAM NOT REQUIRED Urine Hemoglobin (NEG) NEG Urine Glucose (N MG/DL) NEG 01/04 2209 Chemistry Sodium (137 - 145 mmol/L) 136 L Potassium (3.5 - 5.1 mmol/L) 4.2 Chloride (98 - 107 mmol/L) 100 Carbon Dioxide (22 - 30 mmol/L) 28 Anion Gap (5 - 16) 8 BUN (7 - 17 mg/dL) 19 H Creatinine (0.5 - 1.0 mg/dL) 0.9 Estimated GFR (>60 ml/min) 59 L BUN/Creatinine Ratio (7 - 25 %) 21.1 Glucose (65 - 99 mg/dL) 94 Lactic Acid (0.7 - 2.1 mmol/L) 1.0 Calcium (8.4 - 10.2 mg/dL) 9.0 Total Bilirubin (0.2 - 1.3 mg/dL) 0.4 AST (14 - 36 U/L) 19 ALT (9 - 52 U/L) 23 Alkaline Phosphatase (<127 U/L) 55 Total Protein (6.3 - 8.2 g/dL) 6.3 Albumin (3.5 - 5.0 g/dL) 3.7 Globulin (1.9 - 4.2 gm/dL) 2.6 Albumin/Globulin Ratio (1.1 - 2.2 %) 1.4 Hematology CBC w Diff NO MAN DIFF REQ WBC (4.8 - 10.8 /CUMM) 5.7 RBC (4.20 - 5.40 /CUMM) 4.91 Hgb (12.0 - 16.0 G/DL) 13.6 Hct (37 - 47 %) 41.1 MCV (81.0 - 99.0 FL) 83.6 MCH (27.0 - 31.0 PG) 27.8 MCHC (33.0 - 37.0 G/DL) 33.2 RDW (11.5 - 14.5 %) 14.6 H Plt Count (130 - 400 /CUMM) 158 MPV (7.4 - 10.4 FL) 10.8 H Gran % (42.2 - 75.2 %) 59.7 Lymphocytes % (20.5 - 51.1 %) 30.9 Monocytes % (1.7 - 9.3 %) 7.4 Eosinophils % (0 - 5 %) 1.6 Basophils % (0.0 - 2.0 %) 0.4 Absolute Granulocytes (1.4 - 6.5 /CUMM) 3.4 Absolute Lymphocytes (1.2 - 3.4 /CUMM) 1.8 Absolute Monocytes (0.10 - 0.60 /CUMM) 0.4 Absolute Eosinophils (0.0 - 0.7 /CUMM) 0.1 Absolute Basophils (0.0 - 0.2 /CUMM) 0 Imaging/Other Studies: MRI brain reviewed: IMPRESSION: Acute infarct in the right parietal lobe with minimal gyral petechial hemorrhage. Additional punctate foci of acute ischemia in the right middle frontal gyrus near the vertex and in the posterior left parietal lobe. Carotids: FINDINGS: 1. On the right: There is a hemodynamically significant stenosis correlating to 50-79% diameter reduction of the proximal internal carotid artery. A large amount of hyperechoic plaque is noted within the proximal internal and external carotid arteries. The peak systolic and diastolic velocities as measured within the proximal internal carotid artery equals 189 and 3 cm/s respectively. The vertebral artery is patent demonstrating antegrade flow. The right external carotid artery shows no significant stenosis. 2. On the left: Plaque is noted within the internal and carotid artery, but velocity measurements are all normal, not suggesting a stenosis of greater than 50% diameter reduction in the left ICA. The vertebral artery is patent demonstrating antegrade flow. The left external carotid artery shows no significant stenosis. Assessment/Plan Assessment: 87 year old most likely with a new arterioembolic shower from the R ICA plaque or due to its stenosis. Recommendations: 1. Monitor with telemetry for Afib. 2. Bedside swallow evaluation than dysphagia for tonight.. 3. Tomorrow full swallow. 4. Aspirin, Lipitor 80 and [id number] daily. 5. Cardiology consult. 6. Vascular consult - R ICA stenosis. 7. PT/OT, speech and swallow. 8. Echo, lipids, HbA1c, Tsh, B12. YC Consult Acknowledgment - Thank you for your consult request.
[2018-01-05 16:14] VITALS: BP 128/76
[2018-01-05 22:01] VITALS: BP 140/84
--- NOTE | 2018-01-06 06:53 | PN- Housestaff ---
Subjective Follow-up For: STROKE Subjective: Patient has been sedated today after receiving IV Zyprexa last night, patient does not awake to command nor sternal rub. Review of Systems Constitutional: Reports: see HPI. Objective Last 24 Hrs of Vital Signs/I&O Vital Signs Date Time Temp Pulse Resp B/P B/P Pulse O2 O2 Flow FiO2 Mean Ox Delivery Rate 01/06 1440 97.4 68 18 94/52 93 Room Air 01/06 1111 74 98/50 01/06 1100 74 98/50 01/06 0658 98.0 105 18 162/88 93 Room Air 01/05 2201 98.4 64 20 140/84 95 01/05 1733 68 128/76 01/05 1614 98.4 68 18 128/76 98 Intake & Output 01/06 1600 01/06 0800 01/06 0000 Intake Total 240 Output Total 850 650 Balance -850 -410 Intake, Oral 240 Output, Urine 850 650 Patient 123 lb Weight Physical Exam General Appearance: Asleep Cardiovascular: Regular Rate, Normal S1, Normal S2 Lungs: Clear to Auscultation, Normal Air Movement Assessment/Plan Assessment: 87 year old female presenting with increasing LUE weakness and self-reported aphasia. -MRI brain showed: acute infarct in the right parietal lobe with minimal gyral petechial hemorrhage. Additional punctate foci of acute ischemia in the right middle frontal gyrus near the vertex and in the posterior left parietal lobe. -Bedside swallow evaluation was performed, which the patient passed. Problems: 1. 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 LUE weakness Plan: -Continue aspirin -Continue Lipitor 80 mg -Continue lisinopril 10 mg daily -Cardiology has been consulted -Vascular surgery has been consulted for right ICA stenosis Problem List: 1. CVA (cerebral vascular accident) Pain Ratin Pain Location: n/a Pain Goal: Remain pain free Pain Plan: tylenol Tomorrow's Labs & Rationales: none
[2018-01-06 06:58] VITALS: BP 162/88
[2018-01-06 07:28] LABS: ABSOLUTE BASOPHIL COUNT 0 /CUMM (0.0-0.2); ABSOLUTE EOSINOPHIL COUNT 0 /CUMM (0.0-0.7); ABSOLUTE GRANULOCYTE CT 7.3 /CUMM (1.4-6.5); ABSOLUTE LYMPH COUNT 1.3 /CUMM (1.2-3.4); ABSOLUTE MONOCYTE COUNT 0.6 /CUMM (0.10-0.60); BASOPHIL % 0.4 % (0.0-2.0); EOSINOPHIL % 0.3 % (0-5); GRANULOCYTE % 79.1 % (42.2-75.2); HEMATOCRIT 45.5 % (37-47); MEAN CORPUSCULAR HGB 27.5 PG (27.0-31.0); MEAN CORPUSCULAR HGB CONC 32.9 G/DL (33.0-37.0); MEAN CORPUSCULAR VOLUME 83.8 FL (81.0-99.0); MEAN PLATELET VOLUME 11.6 FL (7.4-10.4); PLATELET COUNT 154 /CUMM (130-400); RBC DISTRIBUTION WIDTH 14.5 % (11.5-14.5); RED BLOOD CELL CT 5.43 /CUMM (4.20-5.40)
[2018-01-06 07:57] LABS: WHITE BLOOD CELL COUNT 9.2 /CUMM (4.8-10.8)
--- NOTE | 2018-01-06 10:55 | ECHOCARDIOGRAM REPORT ---
LOBO RODRIGUEZ Age: 87 : 1930 Gender: F Exam Date: 01/05/2018 20:04 Exam Location: 1 [address] Ht (in): 62 Wt (lb): 115 BSA: 1.51 BP: 124 / 60 Ordering Physician: Marielos Restrepo MD Referring Physician: Marielos Restrepo MD Technologist: Rhoda Blackmon [facility] Room Number: [id number] Indications: Stroke Rhythm: Sinus Technical Quality: Fair FINDINGS Left Ventricle Normal global left ventricular size, wall thickness, systolic function with no obvious regional wall motion abnormalities. Left ventricular ejection fraction is estimated at >65 %. Abnormal relaxation filling pattern of the left ventricle for age (stage 1 diastolic dysfunction). Right Ventricle The right ventricle is normal in size and function. Right Atrium The right atrium is normal in size. Left Atrium The left atrium is normal in size. The interatrial septum is intact. Mitral Valve The mitral valve is normal in structure and function. There is trace mitral regurgitation. Aortic Valve Focal thickening of the aortic valve cusps. No aortic stenosis. No aortic regurgitation. Tricuspid Valve The tricuspid valve is normal in structure and function. There is mild tricuspid regurgitation. Pulmonary artery systolic pressure is normal. Pulmonic Valve Structurally normal pulmonic valve. There is no pulmonic regurgitation. Pericardium Normal pericardium without effusion. No pleural effusion. Great Vessels Normal aortic root dimension. The aortic arch and great vessels are well seen and are normal. CONCLUSIONS Normal global left ventricular size, wall thickness, systolic function with no obvious regional wall motion abnormalities. Abnormal relaxation filling pattern of the left ventricle for age (stage 1 diastolic dysfunction). The left atrium is normal in size. The mitral valve is normal in structure and function. Focal thickening of the aortic valve cusps. No aortic stenosis. Pulmonary artery systolic pressure is normal. Jordan Hernandez M.D. (Electronically Signed) Final Date: 06 January 2018 10:54 MEASUREMENTS (Male / Female) Normal Values 2D ECHO LV Diastolic Diameter PLAX 3.3 cm 4.2 - 5.9 / 3.9 - 5.3 cm LV Systolic Diameter PLAX 1.9 cm 2.1 - 4.0 cm LV Fractional Shortening PLAX 42.4 % 25 - 46 % LV Ejection Fraction 2D Teich 74.7 % IVS Diastolic Thickness 1.1 cm LVPW Diastolic Thickness 1.0 cm LV Relative Wall Thickness 0.6 RV Internal Dim ED PLAX 2.8 cm 1.9 - 3.8 cm LVOT Diameter 1.8 cm Aortic Root Diameter 2.7 cm LA Systolic Diameter LX 2.9 cm 3.0 - 4.0 / 2.7 - 3.8 cm LA Volume 27.0 cm 18 - 58 / 22 - 52 cm Ascending Aorta Diameter 2.8 cm DOPPLER AV Peak Velocity 130.0 cm/s AV Peak Gradient 6.8 mmHg AV Mean Velocity 85.8 cm/s AV Mean Gradient 3.0 mmHg AV Velocity Time Integral 29.9 cm LVOT Peak Velocity 95.2 cm/s LVOT Peak Gradient 3.6 mmHg LVOT Mean Velocity 61.4 cm/s LVOT Mean Gradient 2.0 mmHg LVOT Velocity Time Integral 20.6 cm LVOT Stroke Volume 52.4 cm AV Area Cont Eq vti 1.8 cm AV Area Cont Eq pk 1.9 cm MV Peak Velocity 101.0 cm/s MV Peak Gradient 4.1 mmHg MV Mean Velocity 45.1 cm/s MV Mean Gradient 1.0 mmHg Mitral E Point Velocity 56.3 cm/s Mitral A Point Velocity 93.3 cm/s Mitral E to A Ratio 0.6 MV PHT Velocity 66.0 cm/s MV Deceleration [place] 205.0 cm/s MV Pressure Half Time 96.6 ms MV Area PHT 2.3 cm MV Deceleration Time 387.0 ms TR Peak Velocity 255.0 cm/s TR Peak Gradient 26.0 mmHg Right Atrial Pressure 5.0 mmHg Pulmonary Artery Systolic Pressure 31.0 mmHg Right Ventricular Systolic Pressure 31.0 mmHg PV Peak Velocity 70.3 cm/s PV Peak Gradient 2.0 mmHg PV Mean Velocity 45.0 cm/s PV Mean Gradient 1.0 mmHg PV Velocity Time Integral 15.2 cm LV E' Lateral Velocity 7.1 cm/s Mitral E to LV E' Lateral Ratio 7.9 LV E' Septal Velocity 8.2 cm/s Mitral E to LV E' Septal Ratio 6.8
[2018-01-06 11:00] VITALS: BP 98/50
--- NOTE | 2018-01-06 13:52 | PN- Att Addend ---
Attending Addendum Attending Brief Note Patient was very agitated overnight. Needed sedation. Was moving all her extremities and was talking. After sedation this morning the patient was drowsy. Vital signs are stable. No other changes on physical. The MRI showed that the patient had a stroke. Will follow neurology's evaluation and the patient probably will need short-term rehabilitation 24 TOTALS 01/06 0000 01/05 0000 Intake Total 240 Output Total 650 400 Balance -410 -400 Intake, Oral 240 Output, Urine 650 400 Patient 123 lb 115 lb Weight Weight Reported by Patient Measurement Method Current Medications Sig/Julissa Start time Last Medication Dose Route Stop Time Status Admin Acetaminophen 650 MG Q8P PRN 01/05 0245 AC PO Aspirin Buffered 81 MG DAILY 01/05 1611 AC 01/05 PO 1731 Atorvastatin Calcium 80 MG 1700 01/05 0230 AC 01/05 PO 1731 Diphenhydramine HCl 0 .STK-MED ONE 01/06 0146 DC PO Diphenhydramine HCl 50 MG ONCE ONE 01/06 0145 DC PO 01/06 0146 Enoxaparin Sodium 40 MG DAILY 01/05 0900 DC 01/05 SC 0932 Lisinopril 10 MG DAILY 01/05 1610 AC 01/05 PO 1733 Olanzapine 10 MG ONCE ONE 01/06 0200 DC 01/06 IM 01/06 0201 0213 Ondansetron HCl 4 MG Q8P PRN 01/05 0230 AC 01/05 IV 0250 Sodium Chloride 1,000 ML Q13H 01/05 0230 DC 01/05 IV 01/05 1529 0250 Laboratory Tests 01/06/18 0625: Anion Gap 8, Estimated GFR > 60, BUN/Creatinine Ratio 16.3, Hemoglobin A1c 5.5, Triglycerides 123, Cholesterol 178, LDL Cholesterol, Calc 103, HDL Cholesterol 51, Cholesterol/HDL Ratio 3, Vitamin B12 420, Free T4 1.39, Total T3 1.07, TSH & T3 &Free T4 Intrp 7.230 H, CBC w Diff NO MAN DIFF REQ, RBC 5.43 H, MCV 83.8, MCH 27.5, MCHC 32.9 L, RDW 14.5, MPV 11.6 H, Gran % 79.1 H, Lymphocytes % 13.9 L, Monocytes % 6.3, Eosinophils % 0.3, Basophils % 0.4, Absolute Granulocytes 7.3 H, Absolute Lymphocytes 1.3, Absolute Monocytes 0.6, Absolute Eosinophils 0, Absolute Basophils 0 01/05/18 0600: Troponin I < 0.01 01/04/18 2305: Urine Color YEL, Urine Clarity CLEAR, Urine pH 8.5 H, Ur Specific [place] 1.010 , Urine Protein NEG, Urine Ketones NEG, Urine Nitrite NEG, Urine Bilirubin NEG, Urine Urobilinogen 0.2, Ur Leukocyte Esterase NEG, Ur Microscopic EXAM NOT REQUIRED, Urine Hemoglobin NEG, Urine Glucose NEG 01/04/182208: Troponin I < 0.01 01/04/182208: Anion Gap 8, Estimated GFR 59 L, BUN/Creatinine Ratio 21.1, Glucose 94, Lactic Acid 1.0, Calcium 9.0, Total Bilirubin 0.4, AST 19, ALT 23, Alkaline Phosphatase 55, Total Protein 6.3, Albumin 3.7, Globulin 2.6, Albumin/Globulin Ratio 1.4, CBC w Diff NO MAN DIFF REQ, RBC 4.91, MCV 83.6, MCH 27.8, MCHC 33.2, RDW 14.6 H , MPV 10.8 H, Gran % 59.7, Lymphocytes % 30.9, Monocytes % 7.4, Eosinophils % 1.6, Basophils % 0.4, Absolute Granulocytes 3.4, Absolute Lymphocytes 1.8, Absolute Monocytes 0.4, Absolute Eosinophils 0.1, Absolute Basophils 0 Vital Signs Date Time Temp Pulse Resp B/P B/P Pulse O2 O2 Flow FiO2 Mean Ox Delivery Rate 01/06 1111 74 98/50 01/06 1100 74 98/50 01/06 0658 98.0 105 18 162/88 93 Room Air 01/05 2201 98.4 64 20 140/84 95 01/05 1733 68 128/76 01/05 1614 98.4 68 18 128/76 98
[2018-01-06 14:40] VITALS: BP 94/52
--- NOTE | 2018-01-06 16:55 | Cons- Cardiology ---
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 Patient found to have right parietal lobe infarct with punctate hemorrhage, as well as right internal carotid stenosis of 50-79%, for which vascular surgery was consulted and no emergent intervention is being considered at this time. An echocardiogram was performed today, which did not reveal any significant myocardial of valvular dysfunction. No history of arrhythmia has been reported to date. It is impossible to obtain information from the patient today, as she is confused and agitated when awake. She developed agitation overnight and was administered zyprexa, since which she has been very lethargic. She does moves all 4 extremities spontaneously today. Allergies/Medications Allergies: Coded Allergies: Penicillins (Mild, HIVES, RASH 01/04/18) Sulfa (Sulfonamide Antibiotics) (Mild, HIVES, RASH 01/04/18) aspirin (Mild, VOMIT 01/05/18) Home Med List: No Known Home Medications Current Medications: Current Medications Sig/Julissa Start time Last Medication Dose Route Stop Time Status Admin Acetaminophen 650 MG Q8P PRN 01/05 0245 AC PO Aspirin Buffered 81 MG DAILY 01/05 1611 AC 01/05 PO 1731 Atorvastatin Calcium 80 MG 1700 01/05 0230 AC 01/05 PO 1731 Dextrose/Sodium 1,000 ML Q13H 01/06 1630 AC Chloride IV Diphenhydramine HCl 0 .STK-MED ONE 01/06 0146 DC PO Diphenhydramine HCl 50 MG ONCE ONE 01/06 0145 DC PO 01/06 0146 Enoxaparin Sodium 40 MG DAILY 01/05 0900 DC 01/05 SC 0932 Lisinopril 10 MG DAILY 01/05 1610 AC 01/05 PO 1733 Olanzapine 10 MG ONCE ONE 01/06 0200 DC 01/06 IM 01/06 0201 0213 Ondansetron HCl 4 MG Q8P PRN 01/05 0230 AC 01/05 IV 0250 Review of Systems Review of Systems: see HPI Past History Travel History Traveled to [place] past 21 day No Medical History Blood Transfusion Hx: No Neurological: NONE EENT: hearing loss Cardiovascular: NONE Respiratory: NONE Gastrointestinal: NONE Hepatic: NONE Renal: NONE Musculoskeletal: NONE Psychiatric: NONE Endocrine: NONE Blood Disorders: NONE Cancer(s): NONE Surgical History Surgical History: 1 Family History Relations & Conditions If Any: MOTHER Relation not specified for: FH: diabetes mellitus FH: heart disease Psychosocial History Services at Home: None Smoking Status: Former Smoker ETOH Use: denies use Illicit Drug Use: denies illicit drug use Exam & Diagnostic Data Vital Signs and I&O Vital Signs Date Time Temp Pulse Resp B/P B/P Pulse O2 O2 Flow FiO2 Mean Ox Delivery Rate 01/06 1440 97.4 68 18 94/52 93 Room Air 01/06 1111 74 98/50 01/06 1100 74 9850 01/06 0658 98.0 105 18 162/88 93 Room Air 01/05 2201 98.4 64 20 140/84 95 01/05 1733 68 128/76 Intake & Output 01/06 1600 01/06 0000 01/05 1600 01/05 0000 Intake Total 0 240 Output Total 100 850 650 400 Balance -100 -850 -410 -400 Intake, IV 0 Intake, Oral 0 240 Output, Urine 100 850 650 400 Patient 123 lb 123 lb 115 lb 115 lb Weight Weight Reported by Patient Measurement Method Physical Exam: General Appearance : Asleep, responds to her name but becomes agitated . Disoriented. HEENT: moist mucous membranes Neck Supple, No JVD, trachea midline Cardiovascular Regular Rate, Normal S1, Normal S2, 2/6 systolic ejection murmur LUSB Lungs Clear to Auscultation, Normal Air Movement Abdomen Normal Bowel Sounds, Soft, No Tenderness Neurological spontaneously moves all 4 extremities, but does not follow commands. Agitated. Extremities Good capillary refill, No Edema Labs/Doug Results: Laboratory Tests 01/06 01/05 0625 0600 Chemistry Sodium (137 - 145 mmol/L) 137 Potassium (3.5 - 5.1 mmol/L) 3.8 Chloride (98 - 107 mmol/L) 107 Carbon Dioxide (22 - 30 mmol/L) 22 Anion Gap (5 - 16) 8 BUN (7 - 17 mg/dL) 13 Creatinine (0.5 - 1.0 mg/dL) 0.8 Estimated GFR (>60 ml/min) > 60 BUN/Creatinine Ratio (7 - 25 %) 16.3 Hemoglobin A1c (4.2 - 5.8 %) 5.5 Troponin I (< 0.11 ng/ml) < 0.01 Triglycerides (<150 mg/dL) 123 Cholesterol (<200 MG/DL) 178 LDL Cholesterol, Calc (65 - 129 mg/dL) 103 HDL Cholesterol (40 - 60 mg/dL) 51 Cholesterol/HDL Ratio (0.00 - 4.23 %) 3 Vitamin B12 (239 - 931 pg/mL) 420 TSH (0.270 - 4.200 uIU/mL) 7.140 H Free T4 (0.85 - 1.93 ng/dL) 1.39 Total T3 (0.97 - 1.69 ng/mL) 1.07 TSH &T3 &Free T4 Intrp (0.270 - 4.20 uIU/mL) 7.230 H Hematology CBC w Diff NO MAN DIFF REQ WBC (4.8 - 10.8 /CUMM) 9.2 RBC (4.20 - 5.40 /CUMM) 5.43 H Hgb (12.0 - 16.0 G/DL) 14.9 Hct (37 - 47 %) 45.5 MCV (81.0 - 99.0 FL) 83.8 MCH (27.0 - 31.0 PG) 27.5 MCHC (33.0 - 37.0 G/DL) 32.9 L RDW (11.5 - 14.5 %) 14.5 Plt Count (130 - 400 /CUMM) 154 MPV (7.4 - 10.4 FL) 11.6 H Gran % (42.2 - 75.2 %) 79.1 H Lymphocytes % (20.5 - 51.1 %) 13.9 L Monocytes % (1.7 - 9.3 %) 6.3 Eosinophils % (0 - 5 %) 0.3 Basophils % (0.0 - 2.0 %) 0.4 Absolute Granulocytes (1.4 - 6.5 /CUMM) 7.3 H Absolute Lymphocytes (1.2 - 3.4 /CUMM) 1.3 Absolute Monocytes (0.10 - 0.60 /CUMM) 0.6 Absolute Eosinophils (0.0 - 0.7 /CUMM) 0 Absolute Basophils (0.0 - 0.2 /CUMM) 0 01/04 01/04 2305 2209 Chemistry Troponin I (< 0.11 ng/ml) < 0.01 Urines Urine Color (YEL,AMB,STR) YEL Urine Clarity (CLEAR) CLEAR Urine pH (5.0 - 8.0) 8.5 H Ur Specific [place] (1.001 - 1.035) 1.010 Urine Protein (NEG,<30 MG/DL) NEG Urine Ketones (NEG) NEG Urine Nitrite (NEG) NEG Urine Bilirubin (NEG) NEG Urine Urobilinogen (0.1 - 1.0 EU/dl) 0.2 Ur Leukocyte Esterase (NEG) NEG Ur Microscopic EXAM NOT REQUIRED Urine Hemoglobin (NEG) NEG Urine Glucose (N MG/DL) NEG 01/04 2209 Chemistry Sodium (137 - 145 mmol/L) 136 L Potassium (3.5 - 5.1 mmol/L) 4.2 Chloride (98 - 107 mmol/L) 100 Carbon Dioxide (22 - 30 mmol/L) 28 Anion Gap (5 - 16) 8 BUN (7 - 17 mg/dL) 19 H Creatinine (0.5 - 1.0 mg/dL) 0.9 Estimated GFR (>60 ml/min) 59 L BUN/Creatinine Ratio (7 - 25 %) 21.1 Glucose (65 - 99 mg/dL) 94 Lactic Acid (0.7 - 2.1 mmol/L) 1.0 Calcium (8.4 - 10.2 mg/dL) 9.0 Total Bilirubin (0.2 - 1.3 mg/dL) 0.4 AST (14 - 36 U/L) 19 ALT (9 - 52 U/L) 23 Alkaline Phosphatase (<127 U/L) 55 Total Protein (6.3 - 8.2 g/dL) 6.3 Albumin (3.5 - 5.0 g/dL) 3.7 Globulin (1.9 - 4.2 gm/dL) 2.6 Albumin/Globulin Ratio (1.1 - 2.2 %) 1.4 Hematology CBC w Diff NO MAN DIFF REQ WBC (4.8 - 10.8 /CUMM) 5.7 RBC (4.20 - 5.40 /CUMM) 4.91 Hgb (12.0 - 16.0 G/DL) 13.6 Hct (37 - 47 %) 41.1 MCV (81.0 - 99.0 FL) 83.6 MCH (27.0 - 31.0 PG) 27.8 MCHC (33.0 - 37.0 G/DL) 33.2 RDW (11.5 - 14.5 %) 14.6 H Plt Count (130 - 400 /CUMM) 158 MPV (7.4 - 10.4 FL) 10.8 H Gran % (42.2 - 75.2 %) 59.7 Lymphocytes % (20.5 - 51.1 %) 30.9 Monocytes % (1.7 - 9.3 %) 7.4 Eosinophils % (0 - 5 %) 1.6 Basophils % (0.0 - 2.0 %) 0.4 Absolute Granulocytes (1.4 - 6.5 /CUMM) 3.4 Absolute Lymphocytes (1.2 - 3.4 /CUMM) 1.8 Absolute Monocytes (0.10 - 0.60 /CUMM) 0.4 Absolute Eosinophils (0.0 - 0.7 /CUMM) 0.1 Absolute Basophils (0.0 - 0.2 /CUMM) 0 Diagnostic Data Other Results MRI head: Acute infarct in the right parietal lobe with minimal gyral petechial hemorrhage. Additional punctate foci of acute ischemia in the right middle frontal gyrus near the vertex and in the posterior left parietal lobe. 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 Right internal carotid stenosis of 50-79%; vascular surgery is not considering an intervention at this time. CTA head to come. No evidence of cardiac arrhythmia, and stroke more likely to be related to vascular disease than a cardioembolic event. Keep patient on telemetry. patient on ASA at the moment. avoid other platelet inhibitors and/or anticoagulation at this time. Labile blood pressure. Avoid hypotension. Permissive hypertension preferred. Delirium; most likely secondary to CVA. No evidence of UTI or respiratory infection. high TSH and normal T3 and T4, likely secondary to CVA/acute illness. Should be followed in case of early hypothyroidism. Consult Acknowledgment - Thank you for your consult request.
--- NOTE | 2018-01-06 18:42 | Cons- Vascular Surgery ---
General Information and HPI Consulting Request Date of Consult: 01/06/18 Requested By: Edgar Garcia MD Reason for Consult: KANE stenosis Source of Information: patient Exam Limitations: unable to give history, poor historian History of Present Illness: This is a 87 year-old female with no significant past medical history who was admitted with a right parietal stroke. She presented with left sided weakness and slurred speech. She was found on carotid doppler to have significant stenosis in the right internal carotid artery consistent with a 50-79% diameter reduction. Due to these findings, vascular was consulted. History is unable to be obtained due to patient's mental status. She was combative last night and recieved Zyprexa. Allergies/Medications Allergies: Coded Allergies: Penicillins (Mild, HIVES, RASH 01/04/18) Sulfa (Sulfonamide Antibiotics) (Mild, HIVES, RASH 01/04/18) aspirin (Mild, VOMIT 01/05/18) Home Med List: No Known Home Medications Past History Medical History Blood Transfusion Hx: No Neurological: NONE EENT: hearing loss Cardiovascular: NONE Respiratory: NONE Gastrointestinal: NONE Hepatic: NONE Renal: NONE Musculoskeletal: NONE Psychiatric: NONE Endocrine: NONE Blood Disorders: NONE Cancer(s): NONE Surgical History Pertinent Surgical History: 1 Family History Relations & Conditions If Any: MOTHER Relation not specified for: FH: diabetes mellitus FH: heart disease Psychosocial History Services at Home: None Smoking Status: Former Smoker ETOH Use: denies use Illicit Drug Use: denies illicit drug use Review of Systems Review of Systems: Unable to obtain due to mentation Exam & Diagnostic Data Vital Signs and I&O Vital Signs Date Time Temp Pulse Resp B/P B/P Pulse O2 O2 Flow FiO2 Mean Ox Delivery Rate 01/06 1440 97.4 68 18 94/52 93 Room Air 01/06 1111 74 98/50 01/06 1100 74 98/50 01/06 0658 98.0 105 18 162/88 93 Room Air 01/05 2201 98.4 64 20 140/84 95 Intake & Output 01/06 1600 01/06 0801/06 0000 01/05 1600 01/05 0000 Intake Total 0 240 Output Total 100 850 650 400 Balance -100 -850 -410 -400 Intake, IV 0 Intake, Oral 0 240 Output, Urine 100 850 650 400 Patient 123 lb 123 lb 115 lb 115 lb Weight Weight Reported by Patient Measurement Method Physical Exam: Gen - asleep in bed with restraints in place, unable to follow commands Cardiac - S1S2 noted Ext - restraints in place Neuro - left hemiparesis present Last 24 Hours of Labs: Laboratory Tests 01/06 0625 Chemistry Sodium (137 - 145 mmol/L) 137 Potassium (3.5 - 5.1 mmol/L) 3.8 Chloride (98 - 107 mmol/L) 107 Carbon Dioxide (22 - 30 mmol/L) 22 Anion Gap (5 - 16) 8 BUN (7 - 17 mg/dL) 13 Creatinine (0.5 - 1.0 mg/dL) 0.8 Estimated GFR (>60 ml/min) > 60 BUN/Creatinine Ratio (7 - 25 %) 16.3 Hemoglobin A1c (4.2 - 5.8 %) 5.5 Triglycerides (<150 mg/dL) 123 Cholesterol (<200 MG/DL) 178 LDL Cholesterol, Calc (65 - 129 mg/dL) 103 HDL Cholesterol (40 - 60 mg/dL) 51 Cholesterol/HDL Ratio (0.00 - 4.23 %) 3 Vitamin B12 (239 - 931 pg/mL) 420 TSH (0.270 - 4.200 uIU/mL) 7.140 H Free T4 (0.85 - 1.93 ng/dL) 1.39 Total T3 (0.97 - 1.69 ng/mL) 1.07 TSH &T3 &Free T4 Intrp (0.270 - 4.20 uIU/mL) 7.230 H Hematology CBC w Diff NO MAN DIFF REQ WBC (4.8 - 10.8 /CUMM) 9.2 RBC (4.20 - 5.40 /CUMM) 5.43 H Hgb (12.0 - 16.0 G/DL) 14.9 Hct (37 - 47 %) 45.5 MCV (81.0 - 99.0 FL) 83.8 MCH (27.0 - 31.0 PG) 27.5 MCHC (33.0 - 37.0 G/DL) 32.9 L RDW (11.5 - 14.5 %) 14.5 Plt Count (130 - 400 /CUMM) 154 MPV (7.4 - 10.4 FL) 11.6 H Gran % (42.2 - 75.2 %) 79.1 H Lymphocytes % (20.5 - 51.1 %) 13.9 L Monocytes % (1.7 - 9.3 %) 6.3 Eosinophils % (0 - 5 %) 0.3 Basophils % (0.0 - 2.0 %) 0.4 Absolute Granulocytes (1.4 - 6.5 /CUMM) 7.3 H Absolute Lymphocytes (1.2 - 3.4 /CUMM) 1.3 Absolute Monocytes (0.10 - 0.60 /CUMM) 0.6 Absolute Eosinophils (0.0 - 0.7 /CUMM) 0 Absolute Basophils (0.0 - 0.2 /CUMM) 0 Imaging Results: SERVICE DATE: 01/05/18 EXAM TYPE: MRI - MRI-HEAD W/O ERICA EXAMINATION: MR BRAIN WITHOUT CONTRAST CLINICAL INFORMATION: New left-sided weakness. Rule out acute stroke. COMPARISON: Head CT from 01/05/2018. TECHNIQUE: Multiplanar, multisequence imaging of the brain was performed without contrast. FINDINGS: There are acute infarcts in the right parietal lobe. A small area of diffusion signal abnormality is also visible in the right frontal lobe at the high convexity. There is a punctate acute infarct is well in the left parietal lobe posteriorly. 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 There is a chronic infarct with laminar necrosis in the left [employer] vascular territory involving the occipital lobe as well. There is no evidence of hydrocephalus. No mass effect or midline shift is seen. No extra-axial fluid collections are seen. The cerebellum is normal. Generalized parenchymal volume loss evident. There is a mild amount of gyral petechial hemorrhage at the site of the acute infarct in the right parietal lobe. The craniovertebral junction, marrow signal, and midline structures are normal. The major intracranial flow voids at the level of the [place] are preserved. The dural venous sinus flow voids are maintained. The mastoid air cells and paranasal sinuses are well aerated. IMPRESSION: Acute infarct in the right parietal lobe with minimal gyral petechial hemorrhage. Additional punctate foci of acute ischemia in the right middle frontal gyrus near the vertex and in the posterior left parietal lobe. SERVICE DATE: 01/05/18 EXAM TYPE: US - [id number] DOPPLER EXAMINATION: DUPLEX BILATERAL CAROTID ULTRASOUND CLINICAL INFORMATION: Slurring of speech with left-sided weakness COMPARISON: None. TECHNIQUE: Duplex bilateral carotid US was performed using real-time ultrasound and Doppler techniques (integrating B-mode 2D vascular images, Doppler spectral analysis and color flow Doppler imaging). These techniques were utilized to interrogate the extracranial carotid and vertebral arteries bilaterally. The degree of stenosis is based off criteria similar to NASCET. FINDINGS: 1. On the right: There is a hemodynamically significant stenosis correlating to 50-79% diameter reduction of the proximal internal carotid artery. A large amount of hyperechoic plaque is noted within the proximal internal and external carotid arteries. The peak systolic and diastolic velocities as measured within the proximal internal carotid artery equals 189 and 3 cm/s respectively. The vertebral artery is patent demonstrating antegrade flow. The right external carotid artery shows no significant stenosis. 2. On the left: Plaque is noted within the internal and carotid artery, but velocity measurements are all normal, not suggesting a stenosis of greater than 50% diameter reduction in the left ICA. The vertebral artery is patent demonstrating antegrade flow. The left external carotid artery shows no significant stenosis. IMPRESSION: Hemodynamically significant stenosis in the right internal carotid artery consistent with a 50-79% diameter reduction. On the left, a stenosis of greater than 50% is not present. Assessment/Plan Assessment/Plan This is an 87 year-old female admitted with right parietal CVA, found on carotid doppler to have 50-79% stenosis in the right internal carotid artery. No emergent surgical intervention is recommended at this time. Recommend CTA of head/neck Anticoagulation per neurology All other medical managment per medicine Surgical intervention to be discussed once patient's mentation improves Discussed with Dr. Henderson who is in agreement Problem List: 1. CVA (cerebral vascular accident) 2. Stenosis of right internal carotid artery with cerebral infarction Consult Acknowledgment - Thank you for your consult request.
[2018-01-06 22:04] VITALS: BP 106/58
[2018-01-07 06:40] VITALS: BP 126/68
--- NOTE | 2018-01-07 07:00 | PN- Housestaff ---
Subjective Follow-up For: Stroke Subjective: No acute telemetry events overnight, patient appears to be confused continue to repeatedly asked if she had a stroke after explained to her that she did not in fact, stroke. Patient is complaining of generalized numbness and stiffness, has been in the same position for over 24 hours after being given Zyprexa on 2017. Patient does not recall why she is in the hospital, unable to recall yesterday, or the events from night before. Denies fever, night sweats, chills, chest pain, palpitations, shortness of breath. Review of Systems Constitutional: Reports: see HPI. Objective Last 24 Hrs of Vital Signs/I&O Vital Signs Date Time Temp Pulse Resp B/P B/P Pulse O2 O2 Flow FiO2 Mean Ox Delivery Rate 01/07 0640 98.5 62 20 126/68 94 Room Air 01/07 0000 Room Air 01/06 2204 97.4 62 24 106/58 92 01/06 1440 97.4 68 18 94/52 93 Room Air 01/06 1111 74 98/50 01/06 1100 74 98/50 Intake & Output 01/07 0800 01/07 0000 01/06 1600 Intake Total 600 0 Output Total 200 45 100 Balance 400 -45 -100 Intake, IV 600 0 Intake, Oral 0 Output, Urine 200 45 100 Patient 115 lb 123 lb Weight Physical Exam General Appearance: Alert, Cooperative, ORIENTED TO PLACE ONLY. , IN 4 POINT RESTRAINTS Neck: Supple Cardiovascular: Regular Rate, Normal S1, Normal S2 Lungs: Clear to Auscultation, Normal Air Movement Abdomen: Normal Bowel Sounds, Soft, No Tenderness Neurological: Normal Speech, Cranial Nerves 3-12 NL Extremities: Left pronator arm drift Assessment/Plan Assessment: 87 year old female presenting with increasing LUE weakness and self-reported aphasia. -MRI brain showed: acute infarct in the right parietal lobe with minimal gyral petechial hemorrhage. Additional punctate foci of acute ischemia in the right middle frontal gyrus near the vertex and in the posterior left parietal lobe. -Bedside swallow evaluation was performed, which the patient passed. Problems: 1. 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 LUE weakness #Acute Infarction in R. Parietal Lobe -Continue aspirin -Continue Lipitor 80 mg -Continue lisinopril 10 mg daily -Cardiology is following patient -CTA head and neck ordered, waiting for vascular surgery input #Subclinical Hypothyroidism: TSH 7.140, normal T4 normal T3. Patient is currently asymptomatic treatment criteria -thyroid peroxidase antibodies, if positive will begin treatment Problem List: 1. CVA (cerebral vascular accident) Pain Ratin Pain Location: n/a Pain Goal: Remain pain free Pain Plan: tylenol Tomorrow's Labs & Rationales: none
--- NOTE | 2018-01-07 09:39 | Discharge Summary ---
Visit Information Visit Dates Admission Date: 01/06/18 Discharge Date: 01/07/18 Hospital Course Course Attending Physician: Edgar Garcia MD Primary Care Physician: Radha GREENE,Edgar Hospital Course: Patient is a 87 year old female with no significant PMH who presented with increasing weakness, subjective changes in speech and increasingly left upper extremity weakness. Patient was admitted to Telemetry floor for the managment of following issues; 1. Stroke 2. R ICA stenosis Patient was started on Aspirin and high dose statin. MRI showed Acute infarct in the right parietal lobe with minimal gyral petechial hemorrhage. Neurology consult was called who recommended continuing aspirin and statin. Echo showed normal ejection fraction with no regional wall motion abnormalities with stage I diastolic dysfunction. Carotid ultrasound showed hemodynamically significant stenosis in the right internal carotid artery consistent with a 50-79% diameter reduction, for which vascular surgery was called who recommended doing a CTA head and neck showing atherosclerotic plaque resulting in an approximately 80% stenosis of the right internal carotid artery origin and additional 80% stenosis of the more distal aspect of the right carotid bulb. Vascular surgery wanted to wait for 4-6 weeks for surgical intervention(Carotid Endarterectomy) given recent stroke. Will follow up as an outpatient. Cardiology Consult was also obtained but did not find any evidence of cardiac arrhythmia, and thought stroke was more likely to be related to vascular disease than a cardioembolic event. Patient will follow up with [employer] as an outpatient for Possible MARISOL to look for a source of embolus. Lisinopril was decreased to 5mg daily because of borderline hypotention and patient advised to stop it all together if BP remains low. PT evaluated the patient and recommended pt should be discharged to [facility]. Allergies: Coded Allergies: Penicillins (Mild, HIVES, RASH 01/04/18) Sulfa (Sulfonamide Antibiotics) (Mild, HIVES, RASH 01/04/18) aspirin (Mild, VOMIT 01/05/18) Significant Procedures: CT HEAD WO IV CONTRAST IMPRESSION: No acute intracranial pathology. Chronic appearing left occipital lobe infarct, although this is new from 12/24/2014. No cerebellar infarct seen. Moderate volume loss with severe small vessel ischemic changes. [id number] DOPPLER IMPRESSION: Hemodynamically significant stenosis in the right internal carotid artery consistent with a 50-79% diameter reduction. On the left, a stenosis of greater than 50% is not present. ECHOCARDIOGRAM CONCLUSIONS Normal global left ventricular size, wall thickness, systolic function with no obvious regional wall motion abnormalities. Abnormal relaxation filling pattern of the left ventricle for age (stage 1 diastolic dysfunction). The left atrium is normal in size. The mitral valve is normal in structure and function. Focal thickening of the aortic valve cusps. No aortic stenosis. Pulmonary artery systolic pressure is normal. MRI-HEAD W/O ERICA IMPRESSION: Acute infarct in the right parietal lobe with minimal gyral petechial hemorrhage. Additional punctate foci of acute ischemia in the right middle frontal gyrus near the vertex and in the posterior left parietal lobe. CT HEAD ANGIOGRAM; CT NECK ANGIOGRAM IMPRESSION: - There is an evolving acute to subacute infarct within the right parietal lobe with cortical petechial hemorrhage better demonstrated on the previous MRI. There is no significant associated mass effect and there are no new blood products. - Additional small acute infarcts within the right middle frontal gyrus and within the posterior left parietal lobe are better demonstrated on the prior MRI. Chronic left occipital lobe infarct again noted. - There is global cerebral volume loss and there is advanced chronic microangiopathy. - Mixed calcific and lipid rich atherosclerotic plaque result in an approximately 80% stenosis of the right internal carotid artery origin and additional 80% stenosis of the more distal aspect of the right carotid bulb. Fingerlike lipid rich atherosclerotic plaque versus thrombus extends into the central aspect of the right internal carotid artery lumen on image 223 of series 3 which could serve as a source of emboli. - Eccentric lipid rich plaque or thrombus results in a moderate to severe stenosis of the intracranial right supraclinoid ICA segment. There is a 2 mm infundibulum versus aneurysm projecting inferiorly from the communicating segment of the right internal carotid artery just distal to the stenosis. - The distal left P-comm is occluded and the left P1 RADIOLOGY NURSE segment remains patent with decreased caliber distal left RADIOLOGY NURSE branches, not unexpected in the setting of the chronic left RADIOLOGY NURSE territory infarct. Disposition Summary Disposition Principal Diagnosis: Acute Ischemic stroke Additional Diagnosis: R ICA stenosis Discharge Disposition: SNF Discharge Instructions General Discharge Information Code Status: Do Not Resucitate/Intubat Patient's Diet: Regular Patient's Activity: As tolerated Follow-Up Instructions/Appts: Patient advised to follow up with her PCP, neurologist, chain saw mechanic and Vascular surgeon within a week after discharge. Advised to stop lisinopril if BP remains low. Medications at Discharge Discharge Medications: Start taking the following new medications: Atorvastatin Calcium (Atorvastatin Calcium) 80 MG TABLET 1 Tablet ORAL DAILY Qty = 30 No Refills Aspirin (Ecotrin*) 81 MG TABLET.DR 1 Tablet ORAL DAILY Qty = 30 No Refills Lisinopril (Lisinopril) 5 MG TABLET 5 Milligram ORAL DAILY Qty = 30 No Refills Copies To: Santiago GREENE,Yang; Evette GREENE,Aftab
--- NOTE | 2018-01-07 10:03 | PN- Att Addend ---
Attending Addendum Attending Brief Note Better today. Patient is alert new who I was. Patient cannot remember what happened when she came to the hospital. He is in no distress generally weak. Her vital signs are stable no fever. No major changes on physical examination. Will await neurology reevaluation will get a PT evaluation. Patient probably will need short-term rehabilitation. Intake & Output 01/07 1600 01/07 0400 01/06 1600 01/06 0400 01/05 1600 01/05 0400 Intake Total 600 0 240 Output Total 200 45 950 650 400 Balance 400 -45 -950 -410 -400 Intake, IV 600 0 Intake, Oral 0 240 Output, Urine 200 45 950 650 400 Patient 115 lb 123 lb 123 lb 115 lb 115 lb Weight Weight Reported by Patient Measurement Method Current Medications Sig/Julissa Start time Last Medication Dose Route Stop Time Status Admin Acetaminophen 650 MG Q8P PRN 01/05 0245 AC PO Aspirin Buffered 81 MG DAILY 01/05 1611 AC 01/07 PO 0753 Atorvastatin Calcium 80 MG 1700 01/05 0230 AC 01/05 PO 1731 Dextrose/Sodium 1,000 ML Q13H 01/06 1630 AC 01/07 Chloride IV 0550 Enoxaparin Sodium 40 MG DAILY 01/08 0900 UNVr SC Lisinopril 10 MG DAILY 01/05 1610 AC 01/07 PO 0753 Ondansetron HCl 4 MG Q8P PRN 01/05 0230 AC 01/05 IV 0250 Laboratory Tests 01/06/18 0625: Anion Gap 8, Estimated GFR > 60, BUN/Creatinine Ratio 16.3, Hemoglobin A1c 5.5, Triglycerides 123, Cholesterol 178, LDL Cholesterol, Calc 103, HDL Cholesterol 51, Cholesterol/HDL Ratio 3, Vitamin B12 420, TSH 7.140 H, Free T4 1.39, Total T3 1.07, TSH &T3 &Free T4 Intrp 7.230 H, CBC w Diff NO MAN DIFF REQ, RBC 5.43 H, MCV 83.8, MCH 27.5, MCHC 32.9 L, RDW 14.5, MPV 11.6 H, Gran % 79.1 H, Lymphocytes % 13.9 L, Monocytes % 6.3, Eosinophils % 0.3, Basophils % 0.4, Absolute Granulocytes 7.3 H, Absolute Lymphocytes 1.3, Absolute Monocytes 0.6, Absolute Eosinophils 0, Absolute Basophils 0 01/05/18 0600: Troponin I < 0.01 01/04/18 2305: Urine Color YEL, Urine Clarity CLEAR, Urine pH 8.5 H, Ur Specific [place] 1.010 , Urine Protein NEG, Urine Ketones NEG, Urine Nitrite NEG, Urine Bilirubin NEG, Urine Urobilinogen 0.2, Ur Leukocyte Esterase NEG, Ur Microscopic EXAM NOT REQUIRED, Urine Hemoglobin NEG, Urine Glucose NEG 01/04/182208: Troponin I < 0.01 01/04/182208: Anion Gap 8, Estimated GFR 59 L, BUN/Creatinine Ratio 21.1, Glucose 94, Lactic Acid 1.0, Calcium 9.0, Total Bilirubin 0.4, AST 19, ALT 23, Alkaline Phosphatase 55, Total Protein 6.3, Albumin 3.7, Globulin 2.6, Albumin/Globulin Ratio 1.4, CBC w Diff NO MAN DIFF REQ, RBC 4.91, MCV 83.6, MCH 27.8, MCHC 33.2, RDW 14.6 H , MPV 10.8 H, Gran % 59.7, Lymphocytes % 30.9, Monocytes % 7.4, Eosinophils % 1.6, Basophils % 0.4, Absolute Granulocytes 3.4, Absolute Lymphocytes 1.8, Absolute Monocytes 0.4, Absolute Eosinophils 0.1, Absolute Basophils 0 Microbiology 01/06 208 URINE ROUT: Urine Culture - RES Microbiology 01/06 208 URINE ROUT: Urine Culture - RES Vital Signs Date Time Temp Pulse Resp B/P B/P Pulse O2 O2 Flow FiO2 Mean Ox Delivery Rate 01/07 0753 62 126/68 01/07 0640 98.5 62 20 126/68 94 Room Air 01/07 0000 Room Air 01/06 2204 97.4 62 24 106/58 92 01/06 1440 97.4 68 18 94/52 93 Room Air 01/06 1111 74 98/50 01/06 1100 74 98/50
--- NOTE | 2018-01-07 10:59 | CT SCAN REPORT ---
CT ANGIOGRAM NECK WITH CONTRAST CT ANGIOGRAM BRAIN WITH CONTRAST CLINICAL INFORMATION: Generalized weakness and changes and speech and left upper extremity weakness. COMPARISON: Brain MRI 01/05/2018. TECHNIQUE: Test bolus sequences followed by intravenous administration 95 mL of Optiray 320. Helical imaging was performed in the axial plane from the thoracic inlet to the skull vertex. Delayed postcontrast imaging of the head was also performed. The data was processed at the staff nuclear medicine technologist workstation for generation of MIP sequences. Angled MIPs and volume rendered reformatted images were also generated at an offline 3D workstation. Stenoses are assessed in accordance with NASCET criteria unless otherwise indicated. FINDINGS: BRAIN: There is an evolving acute to subacute infarct within the right parietal lobe with cortical petechial hemorrhage better demonstrated on the previous MRI. Additional small acute infarcts within the right middle frontal gyrus and within the posterior left parietal lobe are better demonstrated on the prior MRI. Chronic left occipital lobe infarct again noted. No definite new infarcts. There is global cerebral volume loss and there is advanced chronic microangiopathy. There is no hydrocephalus extra-axial surface collection, midline shift, or other herniation pattern. The basilar cisterns are preserved. No significant soft tissue abnormality. No acute osseous abnormality. The paranasal sinuses and the mastoid air cells are well-aerated. CERVICAL SOFT TISSUES AND LUNG APICES: Gaseous distention of the imaged upper thoracic esophagus. There are no significant soft tissue findings within the neck. There is centrilobular emphysema within the upper lungs. There are a few calcified granulomas within the right and left upper lobes. NECK CTA: Complex lipid rich and calcific atherosclerotic plaque throughout the aortic arch resulting in a mild to moderate stenosis of the left common carotid artery origin and mild luminal narrowing of the left subclavian artery origin. Lipid rich atherosclerotic plaque mildly narrows the brachiocephalic artery origin. The subclavian arteries are widely patent. The vertebral arteries are codominant. No significant ostial stenosis is visualized on either side. Both vertebral arteries are widely patent throughout their extracranial cervical course. Lipid rich atherosclerotic plaque results in mild to moderate stenosis of the left common carotid artery origin. The common carotid arteries are otherwise widely patent. Mixed calcific and lipid rich atherosclerotic plaque result in an approximately 80% stenosis of the right internal carotid artery origin and additional 80% stenosis of the more distal aspect of the right carotid bulb. Fingerlike lipid rich atherosclerotic plaque versus thrombus extends into the central aspect of the right internal carotid artery lumen on image 223 of series 3 which could serve as a source of emboli. There is mixed calcific and lipid rich atherosclerotic plaque at the left carotid bifurcation resulting in a less than 50% stenosis. BRAIN CTA: The distal left P-comm is occluded and the left P1 HOUSING INSPECTOR segment remains patent with decreased caliber distal left HOUSING INSPECTOR branches, not unexpected in the setting of the chronic left HOUSING INSPECTOR territory infarct. 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 The vertebrobasilar system remains widely patent. Eccentric lipid rich plaque or thrombus results in a moderate to severe stenosis of the right supraclinoid ICA segment. There is a 2 mm infundibulum versus aneurysm projecting inferiorly from the communicating segment of the right internal carotid artery just distal to the stenosis. There is a severe stenosis involving the proximal A1 MARLENE segment. No MCA occlusions are identified. IMPRESSION: - There is an evolving acute to subacute infarct within the right parietal lobe with cortical petechial hemorrhage better demonstrated on the previous MRI. There is no significant associated mass effect and there are no new blood products. - Additional small acute infarcts within the right middle frontal gyrus and within the posterior left parietal lobe are better demonstrated on the prior MRI. Chronic left occipital lobe infarct again noted. - There is global cerebral volume loss and there is advanced chronic microangiopathy. - Mixed calcific and lipid rich atherosclerotic plaque result in an approximately 80% stenosis of the right internal carotid artery origin and additional 80% stenosis of the more distal aspect of the right carotid bulb. Fingerlike lipid rich atherosclerotic plaque versus thrombus extends into the central aspect of the right internal carotid artery lumen on image 223 of series 3 which could serve as a source of emboli. - Eccentric lipid rich plaque or thrombus results in a moderate to severe stenosis of the intracranial right supraclinoid ICA segment. There is a 2 mm infundibulum versus aneurysm projecting inferiorly from the communicating segment of the right internal carotid artery just distal to the stenosis. - The distal left P-comm is occluded and the left P1 HOUSING INSPECTOR segment remains patent with decreased caliber distal left HOUSING INSPECTOR branches, not unexpected in the setting of the chronic left HOUSING INSPECTOR territory infarct. The covering provider has been paged with these findings at 10:48 AM on 01/07/2018.
[2018-01-07 14:12] VITALS: BP 104/50
--- NOTE | 2018-01-07 16:36 | PN- Vascular Surgery ---
Surgical Brief Attending Note Brief Attending Note: 87 y/o f former smoker s/p recent right parietal lobe infarct with some left sided defecits and confussion. Vascular surgery consulted for evaluation of right ica stenosis. Pt denies previous stroke. denies other medical probems but she seems to be a poor historian. carotid duplex and CTA were performed and demonstrate a significant plaque withing the ATA. pt denies previous surgeries. alert but somewhat confused at times rrr soft,nt,nd left sided 4/5stength. mild lip droop. right side 5/5 strength. a/p 87 y/o f w/ recent right parietal lobe infarct with ATA stenosis and residual defecits. -given recent stroke i would wait 4-6 weeks for surgical intervention. pt will need right carotid endarterectomy. -i will have my office schedule this -she will need pre operative medical clerance prior to surgery -antiplatlets per neurology please call me with questions i will discuss case with pt's grandson per pt's request
[2018-01-07 22:01] VITALS: BP 98/56
--- NOTE | 2018-01-08 06:41 | PN- Housestaff ---
See Addendum Subjective Follow-up For: Stroke Subjective: No acute telemetry events overnight, afebrile. Patient has no complaint of this morning. Denies fever, night sweats, chills, headache, chest pain, double/ blurry vision, palpitations. Review of Systems Constitutional: Reports: see HPI. Objective Last 24 Hrs of Vital Signs/I&O Vital Signs Date Time Temp Pulse Resp B/P B/P Pulse O2 O2 Flow FiO2 Mean Ox Delivery Rate 01/08 0948 Room Air Room Air 01/08 0838 65 124/68 01/08 0740 98.2 80 18 128/64 96 Room Air 01/07 2201 98.6 72 18 98/56 93 Room Air 01/07 1412 98.1 63 20 104/50 93 Room Air Intake & Output 01/08 1600 01/08 0800 01/08 0000 Intake Total 110 330 Output Total 200 600 350 Balance -200 -490 -20 Intake, IV 30 Intake, Oral 110 300 Number 2 1 0 Bowel Movements Output, Urine 200 600 350 Patient 123 lb Weight Weight Bed scale Measurement Method Physical Exam General Appearance: Alert, Oriented X3, Cooperative Cardiovascular: Regular Rate, Normal S1, Normal S2 Lungs: Clear to Auscultation, Normal Air Movement Abdomen: Normal Bowel Sounds, Soft, No Tenderness Extremities: No Cyanosis, No Edema, Normal Pulses Vascular: Normal Pulses, Pulses Symmetrical Current Medications: Current Medications Sig/Julissa Start time Last Medication Dose Route Stop Time Status Admin Acetaminophen 650 MG Q8P PRN 01/05 0245 AC PO Aspirin Buffered 81 MG DAILY 01/05 1611 AC 01/08 PO 0838 Atorvastatin Calcium 80 MG 1700 01/05 0230 AC 01/07 PO 1609 Docusate Sodium 100 MG BID 01/08 0117 AC 01/08 PO 0839 Enoxaparin Sodium 40 MG DAILY 01/08 0900 AC 01/08 SC 0840 Famotidine 20 MG ONCE ONE 01/07 2230 DC 01/08 PO 01/07 223 0014 Lisinopril 5 MG DAILY 01/09 0900 AC PO Lisinopril 10 MG DAILY 01/05 1610 DC 01/08 PO 0838 Ondansetron HCl 4 MG Q8P PRN 01/05 0230 01/08 IV 0022 Polyethylene Glycol 17 GM DAILY 01/08 09 AC 01/08 PO 0839 Assessment/Plan Assessment: 87 year old female presenting with increasing LUE weakness and self-reported aphasia. -MRI brain showed: acute infarct in the right parietal lobe with minimal gyral petechial hemorrhage. Additional punctate foci of acute ischemia in the right middle frontal gyrus near the vertex and in the posterior left parietal lobe. -Bedside swallow evaluation was performed, which the patient passed. Problems: 1. 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 LUE weakness 3. R. ICA Stenosis #R. ICA Stenosis: Head CTA on 01/07/2018 shows 80% stenosis of right internal carotid artery possible source of emboli. -Patient has been evaluated by vascular surgery, who will wait 4-6 weeks for surgical intervention as patient will require right carotid endarterectomy. #Acute Infarction in R. Parietal Lobe -Continue aspirin -Continue Lipitor 80 mg -Decrease lisinopril to 5 mg daily as her blood pressure has normalized too quickly, if patient continues to experience symptoms related to hypotension can discontinue lisinopril -Neurology is recommending transesophageal echo to evaluate aorta for mobile plaque, awaiting cardiology input whether to do in-house or outpatient. If MARISOL is to be done outpatient will discharge patient STR pending bed placement #Subclinical Hypothyroidism: TSH 7.140, normal T4 normal T3. Patient is currently asymptomatic treatment criteria -thyroid peroxidase antibodies, if positive will begin treatment Problem List: 1. Stroke Pain Ratin Pain Location: n/a Pain Goal: Remain pain free (0) Pain Plan: tylenol Tomorrow's Labs & Rationales: none
[2018-01-08 07:40] VITALS: BP 128/64
--- NOTE | 2018-01-08 09:34 | PN- Cardiology ---
Subjective Subjective: The patient is awake an alert and answering questions appropriately. She seems oriented, states "they tell me I had a stroke". There have been no arrhythmias on the monitor. She is in sinus rhythm. Objective Vital Signs and I&Os Vital Signs Date Time Temp Pulse Resp B/P B/P Pulse O2 O2 Flow FiO2 Mean Ox Delivery Rate 01/08 0838 65 124/68 01/08 0740 98.2 80 18 128/64 96 Room Air 01/07 2201 98.6 72 18 98/56 93 Room Air 01/07 1412 98.1 63 20 104/50 93 Room Air Intake & Output 01/08 1600 01/08 0800 01/08 0000 01/07 1600 01/07 0800 01/07 0000 Intake Total 110 330 900 600 Output Total 414 838 3748 200 45 Balance -490 -20 -100 400 -45 Intake, IV 30 500 600 Intake, Oral 110 300 400 Number 1 0 Bowel Movements Output, Urine 764 726 6142 200 45 Patient 123 lb 115 lb Weight Weight Bed scale Measurement Method Physical Exam: No distress HEENT exam normal Chest clear Heart regular rhythm no murmurs Extremities good pulses no edema Neurologic moving all extremities, more oriented than described yesterday. Current Medications: Current Medications Sig/Julissa Start time Last Medication Dose Route Stop Time Status Admin Acetaminophen 650 MG Q8P PRN 01/05 0245 AC PO Aspirin Buffered 81 MG DAILY 01/05 1611 AC 01/08 PO 0838 Atorvastatin Calcium 80 MG 1700 01/05 0230 AC 01/07 PO 1609 Dextrose/Sodium 1,000 ML Q13H 01/06 1630 DC 01/07 [place] 0550 Docusate Sodium 100 MG BID 01/08 0117 AC 01/08 PO 0839 Enoxaparin Sodium 40 MG DAILY 01/08 0900 01/08 SC 0840 Famotidine 20 MG ONCE ONE 01/07 2230 DC 01/08 PO 01/07 2231 0014 Lisinopril 10 MG DAILY 01/05 1610 AC 01/08 PO 0838 Ondansetron HCl 4 MG Q8P PRN 01/05 0230 01/08 IV 0022 Polyethylene Glycol 17 GM DAILY 01/08 09 01/08 PO 0839 Results Last 48 Hrs of Labs/Mics: Laboratory Tests 01/07/18 1126: Thyroglobulin Antibody Cancelled, Thyroid Peroxidase Ab Cancelled 01/07/18 0500: Sodium Cancelled, Potassium Cancelled, Chloride Cancelled, Carbon Dioxide Cancelled, Anion Gap Cancelled, BUN Cancelled, Creatinine Cancelled, BUN/ Creatinine Ratio Cancelled, Thyroid Peroxidase Ab Cancelled Recent Imaging Studies: CONCLUSIONS Normal global left ventricular size, wall thickness, systolic function with no obvious regional wall motion abnormalities. Abnormal relaxation filling pattern of the left ventricle for age (stage 1 diastolic dysfunction). The left atrium is normal in size. The mitral valve is normal in structure and function. Focal thickening of the aortic valve cusps. No aortic stenosis. Pulmonary artery systolic pressure is normal. Jordan Hernandez M.D. (Electronically Signed) Final Date: 06 January 2018 10:54 Assessment/Plan Assessment/Plan The patient is stable from a cardiac standpoint. She does not have any grossly obvious neurologic deficits at this time. Telemetry can be discontinued and she can continue with physical therapy etc. Continue telemetry? No
[2018-01-08] MEDS ORDERED: LISINOPRIL10 M1 PO ×2 (09:55→10:58)
[2018-01-08] MEDS ORDERED: ATORVASTATIN CA80 M1 PO (09:55)
[2018-01-08] MEDS ORDERED: ASPIRIN EC81 M1 PO (09:55)
--- NOTE | 2018-01-08 10:03 | Patient Discharge Instructions ---
Discharge Instructions General Discharge Information You were seen/treated for: Stroke Rt. Internal carotid artery stenosis Watch for these problems: Please return to the ER in case of any facial droop, weakness/numbness, loss of vision, slurring of speech or severe headaches. Special Instructions: Please follow-up with your PCP, validation specialist, neurologist and vascular surgeon within 1-2 weeks after discharge. Please stop taking Lisinopril if the Systolic blood Pressure remains below 100. Diet Continue normal diet: Yes Recommended Diet: Heart Healthy Activity Full Activity/No Limits: Yes Activity Self Limited: Yes Acute Coronary Syndrome Inclusion Criteria At DC or during hospital stay patient has or had the following: ACS DIAGNOSIS No Discharge Core Measures Meds if any: Prescribed or Continued at Discharge Meds if any: NOT Prescribed or Continued at Discharge Congestive Heart Failure Inclusion Criteria At DC or during hospital stay patient has or had the following: CHF DIAGNOSIS No Discharge Core Measures Meds if any: Prescribed or Continued at Discharge Meds if any: NOT Prescribed or Continued at Discharge Cerebrovascular accident Inclusion Criteria At DC or during hospital stay patient has or had the following: CVA/TIA Diagnosis Yes Discharge Core Measures Meds if any: Prescribed or Continued at Discharge Antithrombotic Yes Statin (required if LDL =>70) Yes Anticoagulant No (not required) Meds if any: NOT Prescribed or Continued at Discharge Venous thromboembolism Inclusion Criteria VTE Diagnosis No VTE Type NONE VTE Confirmed by (Test) NONE Discharge Core Measures - Per Current guidelines, there needs to be overlap - treatment for the first 5 days of Warfarin therapy. - If discharged on Warfarin prior to 5 days of - overlap therapy, the patient will need to be - assessed for post discharge needs including - *Post discharge parental anticoagulation - *Warfarin and/or parental anticoagulation education - *Follow up date to check INR post discharge At least 5 days overlap therapy as Inpatient No Meds if any: Prescribed or Continued at Discharge Note: Overlap Therapy is Warfarin and Anticoagulant Meds if any: NOT Prescribed or Continued at Discharge
--- NOTE | 2018-01-08 10:45 | PN- Neurology ---
Subjective Subjective: Report being more tired today and BILATERAL arm weakness. No Afib detected. Review of Systems: no change Objective Vital Signs and I&Os Vital Signs Date Time Temp Pulse Resp B/P B/P Pulse O2 O2 Flow FiO2 Mean Ox Delivery Rate 01/08 0948 Room Air Room Air 01/08 0838 65 124/68 01/08 0740 98.2 80 18 128/64 96 Room Air 01/07 2201 98.6 72 18 98/56 93 Room Air 01/07 1412 98.1 63 20 104/50 93 Room Air Intake & Output 01/08 1600 01/08 0801/08 0000 01/07 1600 01/07 0801/07 0000 Intake Total 110 330 900 600 Output Total 022 393 5569 200 45 Balance -490 -20 -100 400 -45 Intake, IV 30 500 600 Intake, Oral 110 300 400 Number 1 1 0 Bowel Movements Output, Urine 630 797 5259 200 45 Patient 123 lb 115 lb Weight Weight Bed scale Measurement Method Physical Exam: Somnolent and therefore exam is limited face symmetric, fluent, EOMI arms 4/5 Current Medications: Current Medications Sig/Julissa Start time Last Medication Dose Route Stop Time Status Admin Acetaminophen 650 MG Q8P PRN 01/05 0245 PO Aspirin Buffered 81 MG DAILY 01/05 1611 AC 01/08 PO 0838 Atorvastatin Calcium 80 MG 1700 01/05 0230 AC 01/07 PO 1609 Dextrose/Sodium 1,000 ML Q13H 01/06 1630 VA 01/07 Chloride IV 0550 Docusate Sodium 100 MG BID 01/08 0117 01/08 PO 0839 Enoxaparin Sodium 40 MG DAILY 01/08 09 01/08 SC 0840 Famotidine 20 MG ONCE ONE 01/07 2230 VA 01/08 PO 01/07 2231 0014 Lisinopril 10 MG DAILY 01/05 1610 01/08 PO 0838 Ondansetron HCl 4 MG Q8P PRN 01/05 0230 01/08 IV 0022 Polyethylene Glycol 17 GM DAILY 01/08 09 01/08 PO 0839 Results Last 24 Hours of Lab Results: Laboratory Tests 01/07 1126 Immunology Thyroglobulin Antibody Cancelled Thyroid Peroxidase Ab Cancelled Recent Imaging Studies: FINDINGS: There are acute infarcts in the right parietal lobe. A small area of diffusion signal abnormality is also visible in the right frontal lobe at the high convexity. There is a punctate acute infarct is well in the left parietal lobe posteriorly. 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 There is a chronic infarct with laminar necrosis in the left CERTIFIED OPHTHALMIC TECHNICIAN vascular territory involving the occipital lobe as well. There is no evidence of hydrocephalus. No mass effect or midline shift is seen. No extra-axial fluid collections are seen. The cerebellum is normal. Generalized parenchymal volume loss evident. There is a mild amount of gyral petechial hemorrhage at the site of the acute infarct in the right parietal lobe. The craniovertebral junction, marrow signal, and midline structures are normal. The major intracranial flow voids at the level of the [place] of Rodríguez are preserved. The dural venous sinus flow voids are maintained. The mastoid air cells and paranasal sinuses are well aerated. IMPRESSION: Acute infarct in the right parietal lobe with minimal gyral petechial hemorrhage. Additional punctate foci of acute ischemia in the right middle frontal gyrus near the vertex and in the posterior left parietal lobe. CTA: IMPRESSION: - There is an evolving acute to subacute infarct within the right parietal lobe with cortical petechial hemorrhage better demonstrated on the previous MRI. There is no significant associated mass effect and there are no new blood products. - Additional small acute infarcts within the right middle frontal gyrus and within the posterior left parietal lobe are better demonstrated on the prior MRI. Chronic left occipital lobe infarct again noted. - There is global cerebral volume loss and there is advanced chronic microangiopathy. - Mixed calcific and lipid rich atherosclerotic plaque result in an approximately 80% stenosis of the right internal carotid artery origin and additional 80% stenosis of the more distal aspect of the right carotid bulb. Fingerlike lipid rich atherosclerotic plaque versus thrombus extends into the central aspect of the right internal carotid artery lumen on image 223 of series 3 which could serve as a source of emboli. - Eccentric lipid rich plaque or thrombus results in a moderate to severe stenosis of the intracranial right supraclinoid ICA segment. There is a 2 mm infundibulum versus aneurysm projecting inferiorly from the communicating segment of the right internal carotid artery just distal to the stenosis. 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 Despite the fact that she has 80% stenosis in th R ICA not all of her acute infarcts from what seems like an embolic events are within the right side (see MRI brain - diffusion positive lesion in left parietal). This puts at question whether the culprit is truly the R ICA. It is possible that the culprit is plaque breaking off the aorta. Further, even if the R ICA was to be cleaned with surgery it would not resolve the issue more distally in the supraclinoid section which is intracranially and so effectively would not change outcome that much, at least as far as bloodflow goes. Plan: 1. Vascular surgery consult. 2 Consider MARISOL to look at aorta for mobile plaque. 3. Cut Lisinopril to 5mg as her BP had normalized to quickly and could be the reason for her weakness. 4. PT/OT YC
--- NOTE | 2018-01-08 11:06 | PN- Att Addend ---
Attending Addendum Attending Brief Note No new issues. Vital signs are stable no fever. No new changes on physical examination. Starting to look for a place for her to go for short-term rehab., As soon as it is available we will transfer Intake & Output 01/08 1600 01/08 0400 01/07 1600 01/07 0400 01/06 1600 01/06 0400 Intake Total 452 963 7198 0 240 Output Total 888 609 4202 45 950 650 Balance -490 -20 300 -45 -950 -410 Intake, IV 30 1100 0 Intake, Oral 110 300 400 0 240 Number 2 0 Bowel Movements Output, Urine 751 925 3899 45 950 650 Patient 123 lb 115 lb 123 lb 123 lb Weight Weight Bed scale Measurement Method Current Medications Sig/Julissa Start time Last Medication Dose Route Stop Time Status Admin Acetaminophen 650 MG Q8P PRN 01/05 0245 PO Aspirin Buffered 81 MG DAILY 01/05 1611 01/08 PO 0838 Atorvastatin Calcium 80 MG 1700 01/05 0230 01/07 PO 1609 Dextrose/Sodium 1,000 ML Q13H 01/06 1630 IN 01/07 Chloride IV 0550 Docusate Sodium 100 MG BID 01/08 0117 01/08 PO 0839 Enoxaparin Sodium 40 MG DAILY 01/08 0900 01/08 SC 0840 Famotidine 20 MG ONCE ONE 01/07 2230 IN 01/08 PO 01/07 2231 0014 Lisinopril 5 MG DAILY 01/09 0900 PO Lisinopril 10 MG DAILY 01/05 1610 DC 01/08 PO 0838 Ondansetron HCl 4 MG Q8P PRN 01/05 0230 01/08 IV 0022 Polyethylene Glycol 17 GM DAILY 01/08 0900 01/08 PO 0839 Laboratory Tests 01/07/18 1126: Thyroglobulin Antibody Cancelled, Thyroid Peroxidase Ab Cancelled 01/07/18 0500: Sodium Cancelled, Potassium Cancelled, Chloride Cancelled, Carbon Dioxide Cancelled, Anion Gap Cancelled, BUN Cancelled, Creatinine Cancelled, BUN/ Creatinine Ratio Cancelled, Thyroid Peroxidase Ab Cancelled 01/06/18 0625: Anion Gap 8, Estimated GFR > 60, BUN/Creatinine Ratio 16.3, Hemoglobin A1c 5.5, Triglycerides 123, Cholesterol 178, LDL Cholesterol, Calc 103, HDL Cholesterol 51, Cholesterol/HDL Ratio 3, Vitamin B12 420, TSH 7.140 H, Free T4 1.39, Total T3 1.07, TSH &T3 &Free T4 Intrp 7.230 H, CBC w Diff NO MAN DIFF REQ, RBC 5.43 H, MCV 83.8, MCH 27.5, MCHC 32.9 L, RDW 14.5, MPV 11.6 H, Gran % 79.1 H, Lymphocytes % 13.9 L, Monocytes % 6.3, Eosinophils % 0.3, Basophils % 0.4, Absolute Granulocytes 7.3 H, Absolute Lymphocytes 1.3, Absolute Monocytes 0.6, Absolute Eosinophils 0, Absolute Basophils 0 Vital Signs Date Time Temp Pulse Resp B/P B/P Pulse O2 O2 Flow FiO2 Mean Ox Delivery Rate 01/08 0948 Room Air Room Air 01/08 0838 65 124/68 01/08 0740 98.2 80 18 128/64 96 Room Air 01/07 2201 98.6 72 18 98/56 93 Room Air 01/07 1412 98.1 63 20 104/50 93 Room Air Lisinopril dose was reduced.
[2018-01-08] MEDS ORDERED: LISINOPRIL5 M1 PO (11:25)
[2018-01-08 14:55] VITALS: BP 138/74
[2018-01-08] MEDS ORDERED: PLAVIX75 M1 PO (15:53)
[2018-01-08 16:17] VITALS: BP 138/74
== END 2018-01-08 16:56 | DRG 65 ==
LOC: ERH 21:45 → ERHI 01-05 01:25 → ENRESERV 01-05 14:15 → ENTRNSPT 01-05 15:10 → 1NO 01-05 15:27 → EDTRNSPTSTS 01-05 15:31 → EDTRNSPT 01-05 15:31 → CMPTRNSPT 01-05 15:51 → 1NO 01-06 13:08 → ENPENDDIS 01-08 14:58 → 1NO 01-08 16:56
PROVIDERS: Internal Medicine; Student in an Organized Health Care Education/Training Program
DX: I63.131 Cerebral infarction due to embolism of right carotid artery (principal); G81.94 Hemiplegia, unspecified affecting left nondominant side; R41.0 Disorientation, unspecified; Z87.891 Personal history of nicotine dependence; Z88.0 Allergy status to penicillin; E02 Subclinical iodine-deficiency hypothyroidism; R29.702 NIHSS score 2; R23.3 Spontaneous ecchymoses; R47.89 Other speech disturbances
CPT/HCPCS: 1NSP; 70551; 36415; 81003; 82436; 86376; 86800; 87086; 93005; 93010; 93306; 96374; 97110-GO; 97116-GO; 97162-GP; 97530-GO; 99291; J1650; J2405; J3490; J7042